=== PATIENT | female | born 2000 | race Caucasian/White ===

== ENCOUNTER 2023-10-04 15:30 | Outpatient (CLI) | payer OTHER, SELFPAY ==
[2023-10-04 18:53] LABS: Hematocrit 45.5 % (37.0-47.0); Hemoglobin 15.2 g/dL (12.0-15.0); Mean Corpuscular HGB Conc 33.4 g/dl (32-36); Mean Corpuscular Hemoglobin 31.2 pg (26-34); Mean Corpuscular Volume 93.4 fl (80-100); Mean Platelet Volume 10.5 fl (7.4-10.4); Platelet Count Result 365 k/mm3 (150-375); Red Blood Count 4.87 M/mm3 (4.2-5.4); Red Cell Distribution Width 12.6 % (11.5-14.5); White Blood Count 10.3 K/mm3 (4.5-10.0)
[2023-10-04 19:38] LABS: Alanine Aminotransferase 15 U/L (6-35); Albumin Level 4.9 g/dL (3.5-5.1); Alkaline Phosphatase 67 U/L (38-126); Anion Gap 12 mmol/L (4-12); Aspartate Amino Transferase 58 U/L (14-36); Bilirubin,Total 0.6 mg/dL (0.2-1.3); Blood Urea Nitrogen 13 mg/dL (7-17); Calcium 9.6 mg/dL (8.4-10.2); Carbon Dioxide 28 mmol/L (22-30); Chloride 99 mmol/L (98-107); Estimated Glomerular Filt Rate > 60; Glucose 89 mg/dL (65-110); Magnesium 2.3 mg/dL (1.6-2.3); Potassium 4.5 mmol/L (3.4-5.0); Sodium 139 mmol/L (137-145)
[2023-10-04 19:41] LABS: Iron 163 ug/dL (37-170)
[2023-10-04 19:58] LABS: Percent Iron Saturation 49 % (20-50)
[2023-10-04 20:06] LABS: Thyroid Stimulating Hormone 0.369 uIU/mL (0.465-4.680)
[2023-10-04 20:18] LABS: Free T4 Free Thyroxine 0.88 ng/mL (0.78-2.19)
[2023-10-04 20:41] LABS: Folic Acid 12.1 ng/mL (2.76->20)
[2023-10-04 21:07] LABS: Vitamin D 25 Hydroxy 52.9 ng/mL
[2023-10-06 13:53] LABS: Zinc 64 mcg/dL (60-130)
[2023-10-07 07:44] LABS: Thyroid Peroxidase Antibodies 1 IU/mL (<9)
== END 2023-10-04 15:31 | disposition home or self-care (01) ==
LOC: ANHBWCLAB 15:36
PROVIDERS: PCP Nurse Practitioner Adult Health; Visit Provider Nurse Practitioner Adult Health
DX: Z13.9 Encounter for screening, unspecified (principal); R53.83 Other fatigue; F50.9 Eating disorder, unspecified
CPT/HCPCS: 36415; 80053; 82306; 82607; 82728; 82746; 83540; 83550; 83735; 84439; 84443; 84630; 85027; 86376

== ENCOUNTER 2023-10-12 13:12 | Outpatient (CLI) | payer OTHER, SELFPAY ==
--- NOTE | ~2023-10-12 | US_ITS ---
EXAMINATION: US thyroid DATE: 10/12/2023 13:31 INDICATION: Other specified abnormal findings of blood chemistry. TECHNIQUE: Multiple ultrasound images of the thyroid were obtained. COMPARISON: None. FINDINGS: The right thyroid lobe measures 4.4 x 1.4 x 1.8 cm. The left thyroid lobe measures 4.0 x 0.9 x 1.2 c m. There is normal echotexture and echogenicity throughout the thyroid gland. No discrete nodules id entified. Normal vascular flow is present. IMPRESSION: 1. Normal thyroid. Reviewed, dictated and finalized at location A. IMPRESSION: 1. Normal thyroid.
== END 2023-10-12 13:13 | disposition home or self-care (01) ==
LOC: MICIMG 13:13
PROVIDERS: PCP Nurse Practitioner Adult Health; Visit Provider Nurse Practitioner Adult Health
DX: R79.89 Other specified abnormal findings of blood chemistry (principal)
CPT/HCPCS: 76536

== ENCOUNTER 2023-11-08 14:04 | Emergency (ER) | payer OTHER, SELFPAY ==
--- NOTE | ~2023-11-08 | CT_ITS ---
EXAMINATION: CT abdomen pelvis w con DATE: 11/08/2023 21:38 INDICATION: abdominal pain, vomiting TECHNIQUE: Computed tomography (CT) of the abdomen and pelvis was performed with 100 mL Omnipaque-350 intravenous contrast. Automated exposure control and iterative reconstruction technique were employe d. The dose-length product was 221.66 mGy-cm. COMPARISON: None. FINDINGS: Lower thorax: Motion artifact in the lower lungs Liver: Normal. Biliary/Gallbladder: Gallbladder is normal. No bile duct dilation. Pancreas: No mass or duct dilation. Spleen: Normal. Adrenals:No mass. Kidneys: No suspicious mass, obstructing stone, or hydronephrosis. GI tract: Mild distal esophageal and gastric wall edema. No small or large bowel dilation. Normal chidi endix. Mesentery/Peritoneum: No ascites, mass, or free air. Retroperitoneum: No mass. Pelvis: Nearly empty urinary bladder. Normal uterus and ovaries. Soft Tissues: Soft tissues and body wall unremarkable. Bones: No acute osseous finding. IMPRESSION: Mild esophagitis/gastritis. Otherwise, no acute abdominopelvic process detected. Reviewed, dictated and finalized at location K. IMPRESSION: Mild esophagitis/gastritis. Otherwise, no acute abdominopelvic process detected .
--- NOTE | ~2023-11-08 | XR_ITS ---
EXAMINATION: XR chest 2V Exam Date/Time: 11/08/2023 21:35 CDT HISTORY: chest pain Comparison: CT abdomen pelvis, same date. RESULT: Lines, tubes, and devices: None. Lungs and pleura: Clear. Cardiomediastinal silhouette: Normal. Other: No acute osseous or upper abdominal finding. IMPRESSION: No acute cardiopulmonary process. Reviewed, dictated and finalized at location K.
[2023-11-08 14:20] VITALS: BP 142/76; PULSE 78; RESP 16; TEMP 36.7; O2SAT 100
--- NOTE | 2023-11-08 16:48 | ED.NAVMDI ---
HPI - Nausea/Vomiting/Diarrhea General Chief complaint: Nausea/Vomiting/Diarrhea <Radha Portillo PA-C - Last Filed: 11/09/23 09:52> Stated complaint: nauseous <Radha Portillo PA-C - Last Filed: 11/09/23 09:52> Time Seen by Provider: 11/08/23 16:48 <Radha Portillo PA-C - Last Filed: 11/09/23 09:52> Focused HPI: This is a 23 year old female that presents to the ER for nausea. Reports this is fairly persistent for her. Reports history of anxiety and she does smoke. Reports history of eating disorders. Reports vomiting and diarrhea. Reports she has always been told that her nausea is due to her anxiety. Her boss told her to get a work note as she wanted to leave work because of her nausea. She has not seen a GI doctor yet for this. Denies fevers, dysuria or hematuria. GENERAL: Well-appearing, well-nourished, tearful HEAD: Normocephalic, atraumatic. CHEST: Clear to auscultation. ?No respiratory distress. HEART: Regular rate and rhythm.? NEURO: ?Alert and oriented x3. Patient screened in triage and initial orders placed.? ?Additional care and disposition to be based upon?diagnostic testing and treatment. <Radha Portillo PA-C - Last Filed: 11/09/23 09:52> History of Present Illness HPI Narrative: Patient is a 23-year-old female who presents emergency department with chief complaint of nausea vomiting. Patient reports that she has been having chronic nausea for an extended period of time she does report that she has anxiety and also has used marijuana. The patient states that she does not believe this is cannabis induced hyperemesis reports that she may have cyclic vomiting but has not seen GI. The patient states that she has a aching feeling in her abdomen and feels nauseated reports she has vomited up undigested food. Patient also reports he is getting some discomfort in her chest now as she has been waiting in the ER. Patient does report that she has been started on a new antidepressant about a month ago <Saurav Woods MD - Last Filed: 11/08/23 22:40> Related Data Home medications: Home Medications Medication Instructions Recorded Confirmed albuterol sulfate 90 mcg/actuation 1 puff inhalation Q4H PRN 03/03/23 11/07/23 aerosol inhaler Nsaids BYMOUTH 10/03/23 11/07/23 multivitamin (Daily Multi-Vitamin 1 tablet PO DAILY 10/03/23 11/07/23 tablet) Doxycycline BYMOUTH 11/07/23 11/07/23 adapalene 0.1 %-benzoyl peroxide ea topical 11/07/23 11/07/23 2.5 %-clindamycin 1 % topical gel dapsone 7.5 % topical gel with pump 1 applic topical DAILY 11/07/23 11/07/23 spironolactone 100 mg tablet 100 mg PO DAILY 11/07/23 11/07/23 triamcinolone acetonide 0.1 % 1 applic topical DAILY 11/07/23 11/07/23 topical ointment <Radha Portillo PA-C - Last Filed: 11/09/23 09:52> Allergies/Adverse reactions: Allergies Allergy/AdvReac Type Severity Reaction Status Date / Time Penicillins Allergy Severe hives Verified 11/07/23 14:47 lamotrigine [From Lamictal] Allergy Unknown Unknown Verified 11/07/23 14:47 <Radha Portillo PA-C - Last Filed: 11/09/23 09:52> Review of Systems Review of Systems: A 10 system review of systems was completed on the patient and is negative except for what is stated in the HPI. Nursing and ancillary documentation was reviewed. <Saurav Woods MD - Last Filed: 11/08/23 22:40> [facility] Past Medical History Medical History: Medical History Anxiety Asthma Chronic pain Depression Eating disorder Migraine Personality disorder Seasonal allergies <Radha Portillo PA-C - Last Filed: 11/09/23 09:52> Family History Family History: Family History Father Hypertension Mother Diabetes mellitus Depression Asthma Grandparent Diabetes mellitus Hypertension Heart problem Sibling Depression Sibling
[2023-11-08 18:22] LABS: Basophils Percent Auto 0.1 % (0.2-1.2); Hematocrit 42.8 % (37.0-47.0); Hemoglobin 15.5 g/dL (12.0-15.0); Immature Granulocyte Absolute 0.04 K/mm3 (0.00-0.031); Immature Granulocyte Percent A 0.3 % (0-0.5); Lymphocytes Absolute Auto 1.25 K/mm3 (0.9-3.2); Lymphocytes Percent Auto 8.4 % (18.3-44.2); Mean Corpuscular HGB Conc 36.2 g/dl (32-36); Mean Corpuscular Hemoglobin 32.3 pg (26-34); Mean Corpuscular Volume 89.2 fl (80-100); Monocytes Absolute Auto 0.6 K/mm3 (0.1-0.6); Monocytes Percent Auto 3.8 % (2.6-8.5); Neutrophils Absolute Auto 13.1 K/mm3 (1.3-6.7); Neutrophils Percent Auto 87.4 % (45.5-73.1); Platelet Count Result 346 k/mm3 (150-375); Red Cell Distribution Width 12.4 % (11.5-14.5); White Blood Count 14.9 K/mm3 (4.5-10.0)
[2023-11-08 18:34] LABS: Alanine Aminotransferase 29 U/L (6-35); Albumin Level 5.1 g/dL (3.5-5.1); Alkaline Phosphatase 70 U/L (38-126); Anion Gap 13 mmol/L (4-12); Aspartate Amino Transferase 36 U/L (14-36); Bilirubin,Total 0.8 mg/dL (0.2-1.3); Blood Urea Nitrogen 14 mg/dL (7-17); Calcium 9.6 mg/dL (8.4-10.2); Carbon Dioxide 19 mmol/L (22-30); Chloride 104 mmol/L (98-107); Estimated CRCL calculation 155 ml/min; Estimated Glomerular Filt Rate > 60; Glucose 108 mg/dL (65-110); Lipase 112 U/L (23-300); Potassium 4.1 mmol/L (3.4-5.0); Sodium 136 mmol/L (137-145)
[2023-11-08 19:48] VITALS: BP 125/90; PULSE 108; RESP 16; TEMP 36.9; O2SAT 100
--- NOTE | 2023-11-08 20:27 | ECG_ITS ---
Test Date: 2023-11-08 21:04:25 Measurements Intervals [place] Rate: 105 P: 134 HI: 139 QRS: 130 QRSD: 87 T: 50 QT: 350 QTc: 464 Interpretive Statements SINUS TACHYCARDIA ARM LEADS REVERSED [INVERTED P AND QRS IN I] NONSPECIFIC T-WAVE ABNORMALITY ABNORMAL ECG No previous ECG available for comparison Electronically Signed On 11-09-2023 13:50:05 CDT by Wily Murphy M.D.
[2023-11-08] MEDS: SODIUM CHLORIDE 0.9% IV 1,000 ML 999 ML IV CONT ×2 (20:45→20:53)
[2023-11-08] MEDS: diphenhydrAMINE HCl INJ 50 MG/ML VIAL IV PUSH (20:58)
[2023-11-08] MEDS: PROCHLORPERAZINE EDISYLATE 10 MG/2 ML VIAL IV PUSH (20:59)
[2023-11-08 21:04] LABS: Magnesium 1.9 mg/dL (1.6-2.3)
[2023-11-08 21:18] LABS: Troponin I < 0.012 ng/mL (0.000-0.034)
[2023-11-08 21:24] VITALS: BP 108/69; PULSE 89; RESP 18; O2SAT 100
[2023-11-08 21:24] LABS: BEDSIDEPREGUCG Negative (Negative)
[2023-11-08 21:26] LABS: Add Urine Microscopic? YES; Appearance Urine Clear (Clear); Bacteria Urine None Seen /hpf; Bilirubin Urine Negative (Negative); Blood Urine 3+ (Negative); Color Urine Yellow (Yellow); Glucose Urine UA Negative (Negative); Ketones Urine 2+ mg/dL (Negative); Leukocyte Esterase Ur Negative LEU/UL (Negative); Nitrate Urine Negative (Negative); Non Pathogenic Casts 0-2; Protein Urine 2+ mg/dL (Negative); Squamous Epithelial Cell Urine None Seen /hpf (Few); Urobilinogen Urine 0.2 mg/dL (<2.0); WBC Urine 0-5 /hpf (0-3); pH Urine 6.5 (5.0-9.0)
== END 2023-11-08 23:03 | disposition home or self-care (01) ==
PROVIDERS: Physician Assistant; Emergency Provider Emergency Medicine; PCP Nurse Practitioner Adult Health
DX: R11.2 Nausea with vomiting, unspecified (principal); K29.70 Gastritis, unspecified, without bleeding; F41.9 Anxiety disorder, unspecified; F32.A Depression, unspecified; J45.909 Unspecified asthma, uncomplicated; Z79.51 Long term (current) use of inhaled steroids; F12.90 Cannabis use, unspecified, uncomplicated
CPT/HCPCS: 36415; 71046; 74177; 80053; 81001; 81025; 83690; 83735; 84484; 85025; 93005; 96361; 96374; 96375; 99284; J0780; J1200; J7030; Q9967

== ENCOUNTER 2024-01-03 16:04 | Outpatient (CLI) | payer OTHER, SELFPAY ==
[2024-01-03 11:48] LABS: CRP < 0.5 mg/dL (<1.0)
[2024-01-03 11:54] LABS: Erythrocyte Sedimentation Rate 13 mm/hr (0-20)
[2024-01-06 14:27] LABS: H pylori Ag Stool RESULT: Not Detected
[2024-01-07 04:13] LABS: Immunoglobulin A 375 mg/dL (47-310); TTG IGA AB <1.0 U/mL
== END 2024-01-03 16:05 | disposition home or self-care (01) ==
PROVIDERS: PCP Nurse Practitioner Adult Health; Visit Provider Nurse Practitioner Family
DX: H90.3 Sensorineural hearing loss, bilateral (principal); R11.0 Nausea; R19.7 Diarrhea, unspecified; R63.0 Anorexia; R63.4 Abnormal weight loss; R68.81 Early satiety; H69.90 Unspecified Eustachian tube disorder, unspecified ear; J30.2 Other seasonal allergic rhinitis; J32.0 Chronic maxillary sinusitis; J34.89 Other specified disorders of nose and nasal sinuses
CPT/HCPCS: 36415; 82784; 83993; 85652; 86140; 86364; 87338

== ENCOUNTER 2024-01-11 01:33 | Day surgery (SDC) | payer OTHER, SELFPAY ==
[2024-01-02 09:00] VITALS: BMI 20.7
[2024-01-11 06:24] VITALS: BP 114/70; PULSE 102; RESP 16; TEMP 36.2; O2SAT 100
[2024-01-11 06:27] VITALS: BMI 21.4
[2024-01-11] MEDS: LACTATED RINGERS 1,000 ML 150 ML IV CONT (06:40)
[2024-01-11 07:21] LABS: Beta HCG Quantitative < 2.39 mIU/ML
--- NOTE | 2024-01-11 07:30 | WPDANESEPPF ---
Anes - Initial Pre Proc Eval Procedure: Operation Date: 01/11/24 07:30 Proposed Procedures p Esophagogastroduodenoscopy & Colonoscopy - Bernard Miller MD Date/Time: 01/11/24 07:30 Surgeon: Bernard Miller MD Pre Op Diagnosis: anorexia/ diarrhea Patient Data Age: 23 Gender: F Height: 1.68 m Weight: 60.3 kg Last Vital Signs Temp 36.2 C L 01/11/24 06:24 Pulse 102 H 01/11/24 06:24 Resp 16 01/11/24 06:24 BP 114/70 01/11/24 06:24 Pulse Ox 100 01/11/24 06:24 Allergies Allergy/AdvReac Type Severity Reaction Status Date / Time lamotrigine [From Lamictal] Allergy Unknown Rash Verified 01/11/24 06:22 Home Medications Medication Instructions Recorded Confirmed Type albuterol sulfate 90 mcg/actuation 1 puff inhalation Q4H PRN 03/03/23 01/11/24 History aerosol inhaler Shortness Of Breath diazepam 2 mg tablet 2 mg PO BID PRN anxiety #20 tabs 10/04/23 01/11/24 Rx adapalene 0.1 %-benzoyl peroxide 1 ea topical EVERY OTHER DAY 11/07/23 01/11/24 History 2.5 %-clindamycin 1 % topical gel dapsone 7.5 % topical gel with pump 1 applic topical DAILY 11/07/23 01/11/24 History fluvoxamine 50 mg tablet 50 mg PO DAILY #90 tabs 11/07/23 01/11/24 Rx spironolactone 100 mg tablet 100 mg PO DAILY 11/07/23 01/11/24 History ondansetron 4 mg disintegrating 4 mg PO Q8H PRN nausea and 11/08/23 01/11/24 Rx tablet vomiting #10 tabs norgestimate 0.25 mg-ethinyl 1 tablet PO .COMPLEX #112 tabs 11/16/23 01/11/24 Rx estradiol 35 mcg tablet (Sprintec (28)) tacrolimus 0.1 % topical ointment 1 ea topical PRN PRN rash 11/16/23 01/11/24 History pantoprazole 40 mg tablet,delayed 40 mg PO DAILY #30 tabs 11/22/23 01/11/24 Rx release (Protonix) Laboratory Tests 01/11/24 06:44 Beta HCG, Quant < 2.39 mIU/ML Patient hx anesthesia problems: none Family hx anesthesia problems: none Results Review: All pre-operative results and documents have been reviewed as part of the pre-operative evaluation. [facility] Past Medical History Medical History Anxiety Asthma Chronic pain Depression Eating disorder Migraine Personality disorder Seasonal allergies Family History Family History Father Hypertension Mother Diabetes mellitus Depression Asthma Grandparent Diabetes mellitus Hypertension Heart problem Sibling Depression Sibling Depression Grandparent Heart disease Hypertension Grandparent Heart problem Hypertension Grandparent Hypertension Cancer Social History Social History Smoking status: Current every day smoker Tobacco type: e-cigarettes/vaping Second hand tobacco smoke exposure: No Alcohol intake: current Alcohol use details: Rarely Substance use: current Substance use type: marijuana Other substance usage details: vapes, edibles from dispensary only Last use: 01/02/24 Do You Feel Safe in your Home?: Yes Lack of Transportation: No Lack of Food: Never True Current Housing: I Have Housing Concerned About Future Housing: No Difficulty Paying Gas/Electric Bills: No Difficulty Paying for Meds: No Currently Unemployed: YES Education: High School Diploma/GED Difficulty w/ Childcare or Family Care: No Living arrangements: with family Occupation/Education: occupation 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 Gender identity (if verbalized by the patient): Female Sexual Orientation (if Verbalized by the Patient): Straight or Heterosexual Agree to blood products: Yes Anes - Eval Final PreProcedure Day of Procedure 01/11/24 07:30 Patient weight: normal Heart: regular rate and rhythm Lungs: clear to auscultation Airway: Mallampati scale class II Neurological: alert and oriented Last oral intake: >/= 8 hours ASA classification: III Emergent: no Anesthetic plan: proceed Anesthesia type and monitoring: general GIVS and standard monitoring Results Review: All pre-operative results and documents have been reviewed as part of the pre-operative evaluation. Informed Consent: The patient's anesthetic plan and its attendant risks and benefits were discussed with the patient/family/POA. Questions were solicited and answers provided to the satisfaction of the patient/family/POA.
--- NOTE | 2024-01-11 07:33 | PM.IMHP ---
H&P: HPI History of Present Illness Date/Time: 01/11/24 07:33 Chief Complaint: Nausea and intermittent diarrhea. Narrative: this patient has been complaining of early satiety and nausea for several months, in addition to occasional diarrhea episodes with urgency. There is no rectal bleeding, severe abdominal pain but there is change in bowel habits which is relatively recent. She is here for evaluation including EGD and colonoscopy. Review of Systems Review of Systems: All systems reviewed & are unremarkable except as noted in HPI and below PMFSH Past Medical History Medical History Anxiety Asthma Chronic pain Depression Eating disorder Migraine Personality disorder Seasonal allergies Family History Family History Father Hypertension Mother Diabetes mellitus Depression Asthma Grandparent Diabetes mellitus Hypertension Heart problem Sibling Depression Sibling Depression Grandparent Heart disease Hypertension Grandparent Heart problem Hypertension Grandparent Hypertension Cancer Social History Social History Smoking status: Current every day smoker Tobacco type: e-cigarettes/vaping Second hand tobacco smoke exposure: No Alcohol intake: current Alcohol use details: Rarely Substance use: current Substance use type: marijuana Other substance usage details: vapes, edibles from dispensary only Last use: 01/02/24 Do You Feel Safe in your Home?: Yes Lack of Transportation: No Lack of Food: Never True Current Housing: I Have Housing Concerned About Future Housing: No Difficulty Paying Gas/Electric Bills: No Difficulty Paying for Meds: No Currently Unemployed: YES Education: High School Diploma/GED Difficulty w/ Childcare or Family Care: No Living arrangements: with family Occupation/Education: occupation 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 Gender identity (if verbalized by the patient): Female Sexual Orientation (if Verbalized by the Patient): Straight or Heterosexual Agree to blood products: Yes Meds Home Medications and Allergies Home Medications Medication Instructions Recorded Confirmed Type albuterol sulfate 90 mcg/actuation 1 puff inhalation Q4H PRN 03/03/23 01/11/24 History aerosol inhaler Shortness Of Breath diazepam 2 mg tablet 2 mg PO BID PRN anxiety #20 tabs 10/04/23 01/11/24 Rx adapalene 0.1 %-benzoyl peroxide 1 ea topical EVERY OTHER DAY 11/07/23 01/11/24 History 2.5 %-clindamycin 1 % topical gel dapsone 7.5 % topical gel with pump 1 applic topical DAILY 11/07/23 01/11/24 History fluvoxamine 50 mg tablet 50 mg PO DAILY #90 tabs 11/07/23 01/11/24 Rx spironolactone 100 mg tablet 100 mg PO DAILY 11/07/23 01/11/24 History ondansetron 4 mg disintegrating 4 mg PO Q8H PRN nausea and 11/08/23 01/11/24 Rx tablet vomiting #10 tabs norgestimate 0.25 mg-ethinyl 1 tablet PO .COMPLEX #112 tabs 11/16/23 01/11/24 Rx estradiol 35 mcg tablet (Sprintec (28)) tacrolimus 0.1 % topical ointment 1 ea topical PRN PRN rash 11/16/23 01/11/24 History pantoprazole 40 mg tablet,delayed 40 mg PO DAILY #30 tabs 11/22/23 01/11/24 Rx release (Protonix) Allergies Allergy/AdvReac Type Severity Reaction Status Date / Time lamotrigine [From Lamictal] Allergy Unknown Rash Verified 01/11/24 06:22 Vital Signs Vital Signs - 24 hr 01/11/24 06:24 Temperature 97.2 F L Pulse Rate 102 H Respiratory Rate 16 Blood Pressure 114/70 Pulse Oximetry 100 Exam Const: General: cooperative and healthy appearing Resp: Effort & Inspection: normal respiratory effort and able to speak in complete sentences Auscultation: clear to auscultation bilaterally Cardio: Rate: regular rate Rhythm: regular rhythm GI: Inspection: normal to inspection GI Palp: No No hepatosplenomegaly present Auscultation: normal bowel sounds Rectal Exam: deferred Skin: General skin exam: normal color Psych: Appearance: grossly normal Mental Status: mental status grossly normal Assessment and Plan Assessment and plan (1) Nausea: Code(s): R11.0 - Nausea Status: Acute Assessment and Plan: The patient is deemed a good candidate for the procedure. Consent signed. Will proceed. (2) Diarrhea: Qualifiers: Diarrhea type: functional diarrhea Qualified Code(s): K59.1 - Functional diarrhea Code(s): R19.7 - Diarrhea, unspecified Status: Acute
--- NOTE | 2024-01-11 07:39 | SUR.OPER ---
EGD: [id number] COLON: [id number]-
[2024-01-11 08:05] VITALS: BP 99/66; PULSE 75; RESP 18; O2SAT 100
[2024-01-11 08:15] VITALS: BP 102/65; PULSE 72; RESP 18; O2SAT 100
[2024-01-11 08:25] VITALS: BP 102/69; PULSE 71; RESP 15; O2SAT 100
== END 2024-01-11 08:37 | disposition home or self-care (01) ==
PROVIDERS: Anesthesiology; PCP Nurse Practitioner Adult Health; Referring Provider Nurse Practitioner Family; Visit Provider Internal Medicine Gastroenterology
PROC: 0DJ08ZZ Inspection of Upper Intestinal Tract, Via Natural or Artificial Opening Endoscopic (ICD-10-PCS; CPT 43235; principal; 2024-01-11 07:30)
DX: K59.1 Functional diarrhea (principal); F41.9 Anxiety disorder, unspecified; J45.909 Unspecified asthma, uncomplicated; G89.29 Other chronic pain; F32.A Depression, unspecified; Z68.21 Body mass index [BMI] 21.0-21.9, adult; F50.9 Eating disorder, unspecified; F60.9 Personality disorder, unspecified; F12.90 Cannabis use, unspecified, uncomplicated; F17.290 Nicotine dependence, other tobacco product, uncomplicated; Z79.51 Long term (current) use of inhaled steroids; Z80.9 Family history of malignant neoplasm, unspecified; Z82.49 Family history of ischemic heart disease and other diseases of the circulatory system
CPT/HCPCS: 43239; 45380; 36415; 84702; 88305; J2003; J2371; J2704; J7120

== ENCOUNTER 2024-03-13 07:47 | Outpatient (CLI) | payer OTHER, SELFPAY ==
--- NOTE | ~2024-03-13 | NM_ITS ---
EXAM: NM gastric emptying study DATE: 03/13/2024 12:33 INDICATION: Nausea. Early satiety. TECHNIQUE: A gastric emptying study was performed using the methodology of Elza PENA, et al. J Nucl Med 2007; 48:568-572. The patient was given a meal consisting of 2 scrambled eggs labeled with 0.972 mCi Tc-99m sulfur colloid, 2 slices of toast, two packages of jam, and approximately 120 mL of water . Simultaneous anterior and posterior 1-min images of the abdomen were obtained with the patient supi ne at multiple time points over a total period of 4 hours. The geometric mean of anterior and posteri or views was determined, and the percentage retention was calculated for each time point. COMPARISON: CT abdomen and pelvis 11/08/2023 FINDINGS: Gastric retention of the radiotracer-labeled meal was 58%, 32%, and 14% at the 1-hour, 2-h our, and 4-hour time points, respectively. With this technique, apparent rapid gastric emptying is rose ggested by <30% gastric retention at 1 hour. Delayed gastric emptying is defined by gastric retention of >90% at 1 hour, >60% retention at 2 hours, or >10% retention at 4 hours. IMPRESSION: 1. Delayed gastric emptying. Reviewed, dictated and finalized at location A. [employer]G FOREMAN
--- OUTSIDE RECORDS SUMMARY | 2024-03-13 07:50 | XMS_ITS | Data Portability ---
Author Organization [facility] [place] Address [address] [place] [address] Care Team Providers Care Leisure Travel Agent Name Role Phone BRITNEY BERRIOS Psychiatrist MATTHIEU GARBER Primary Care Provider [phone] Assessment Encounter Date Assessment Date Assessment LastModified by Organization Details LastModified Time 10/15/2022 10/15/2022 Telehealth communication performed with patient. Service was provided using telemedicine. Patient verbally consents to this services (virtual check-in). Names and roles of all persons participating in telemedicine services include: Patient is located at home and is an established patient. A total of _15-20__ minutes were spent in consultation via [employer] Telehealth video and audio to assess and treat the following: Not available 10/15/2022 16:28:59 Plan of Treatment Reminders Order Date Submit Date Provider Last Modified By Organization Details Last Modified Time Details Appointments None recorded. Lab magnesium, serum or plasma 2021 022 [facility], [address] [place], [address], 3 08:44:46 vitamin B12 + folate, serum or blood 2021 022 [facility], [address] [place], [address], 3 08:44:47 TSH, serum or plasma 2021 022 [facility], [address] [place], [address], 3 08:44:47 T4, free, serum 2021 022 [place] [address] [facility], [address] [place], [address], 3 08:44:47 CBC w/ auto diff 2021 022 [place] [address] [facility], [address] [place], [address], 3 08:44:47 CMP, serum or plasma 2021 022 [place] [address] [facility], [address] [place], [address], 3 08:44:47 CT + NG RNA, PCR, unspecified specimen 2021 022 [place] [address] [facility], [address] [place], [address], 3 08:44:45 trichomonas vaginalis RNA 2021 022 [place] [address] [facility], [address] [place], [address], 3 08:44:45 HIV 1+2 Ab + HIV1 p24 Ag, quantitativ e immunoassay , serum 2021 022 [place] [address] [facility], [address] [place], [address], 3 08:44:46 RPR (rapid plasma reagin), serum 2021 [place] [address] [facility], [address] [place], [address], 3 08:44:46 hsv (1+2) igg, serum 2021 022 [email or web address], [address] [place], [address], 3 08:44:46 hepatitis panel (A+B+C), acute, serum 2021 022 [email or web address] [facility], [address] [place], [address], 3 08:44:46 TSH, serum or plasma 2022 023 [email or web address], [address] [place], [address], 4 12:10:42 erythrocyte sedimentati on rate by westergren method 2022 023 [email or web address], [address] [place], [address], 4 12:10:41 CMP, serum or plasma 2022 023 [email or web address], [address] [place], [address], 4 12:10:42 magnesium, serum or plasma 2022 023 [email or web address], [address] [place], [address], 4 12:10:42 MARY (antinuclea r antibodies) screen, serum 2022 023 [email or web address], [address] [place], [address], 4 12:10:42 Referral gynecologis t referral 2021 022 [email or web address] Aline Beltran MD, [address] , [facility], [place], [address], 3 08:54:54 Procedures None recorded. Surgeries None recorded. Imaging None recorded. Medication Orders Vraylar 1.5 mg capsule 2021 022 [email or web address] Not available 3 15:34:09 Vraylar 3 mg capsule 2021 022 [email or web address] Not available 3 15:34:19 nystatin 100,000 unit/gram topical powder 2022 023 [facility] [address] [place], [address], 3 11:29:22 triamcinolo ne acetonide 0.1 % topical cream 2022 023 [facility], [address] [place], [address], 3 11:29:22 Ubrelvy 100 mg tablet [address]/[facility]armacy [facility], [address] [place], [address], 3 16:02:26 Nurtec ODT 75 mg disintegrat ing tablet [address]/Pharmacy #3206, [address] [place], [address], 3 16:27:54 propranolol 10 mg tablet 2022 023 [facility]3206, [address] [place], [address], 3 15:54:04 propranolol 10 mg tablet 2022 023 [email or web address] [address] [facility]/Pharmacy #3206, [address] [place], [address], 3 12:35:26 Patient TargetsNo targets recorded. Patient Instructions Encounter Date Encounter Id Patient Instructions Last Modified By Organization Details Last Modified Time 09/30/2021 [id number] post-traumatic stress disorder (PTSD): care instructions Not available 10/01/2021 08:24:21 controlling your asthma: care instructions Not available 10/01/2021 08:24:20 learning about asthma Not available 10/01/2021 08:24:21 learning about high blood sugar Not available 10/01/2021 08:24:20 headache: care instructions Not available 10/01/2021 08:24:21 anxiety disorder : care instructions Not available 10/01/2021 08:24:20 learning about mood disorders Not available 10/01/2021 08:24:21 01/11/2022 [id number] controlling your asthma: care instructions Not available 01/11/2022 17:27:27 learning about asthma Not available 01/11/2022 17:27:26 learning about high blood sugar Not available 01/11/2022 17:27:27 headache: care instructions Not available 01/11/2022 17:27:25 bulimia: care instructions Not available 01/11/2022 17:27:26 anxiety disorder : care instructions Not available 01/11/2022 17:27:27 learning about mood disorders Not available 01/11/2022 17:27:27 03/10/2022 [id number] headache: care instructions Not available 03/10/2022 11:29:19 controlling your asthma: care instructions Not available 03/10/2022 11:29:19 learning about asthma Not available 03/10/2022 11:29:19 learning about high blood sugar Not available 03/10/2022 11:29:19 anxiety disorder : care instructions Not available 03/10/2022 11:29:19 Eczema: Care Instructions Not available 03/10/2022 11:29:19 learning about mood disorders Not available 03/10/2022 11:29:19 09/13/2022 [id number] headache: care instructions Not available 09/13/2022 15:53:57 controlling your asthma: care instructions Not available 09/13/2022 15:53:57 learning about asthma Not available 09/13/2022 15:53:57 anxiety disorder : care instructions Not available 09/13/2022 15:53:57 learning about mood disorders Not available 09/13/2022 15:53:57 10/15/2022 [id number] controlling your asthma: care instructions Not available 10/15/2022 16:29:40 learning about asthma Not available 10/15/2022 16:29:40 headache: care instructions Not available 10/15/2022 16:29:40 anxiety disorder : care instructions Not available 10/15/2022 16:29:40 learning about mood disorders Not available 10/15/2022 16:29:40 Reason for Referral [employer] Referral for Co ntraception care management Referring Physician: Erma Wharton, Family Medicine, Encounter Date: 01/11/2022 Problems Name Problem SNOMED Code Status Onset Date Resolution Date Notes Provider Name and Address Organization Details Recorded Time Asthma 623495558 Active 2021 Not Available [facility] 3 22:21:40 Anxiety 78527680 Active 2021 Not Available [facility] 3 22:21:41 Depressive disorder 78527658 Active 2021 Not Available [facility] 3 22:21:41 Attention deficit hyperactiv ity disorder 319679089 Active 2021 Not Available [facility] 3 22:21:41 Bipolar disorder 41941560 Active 2021 Not Available [facility] 3 22:21:40 Posttrauma tic stress disorder 24155643 Active 2021 Not Available [facility] 3 22:21:41 Headache 66042670 Active 2021 Not Available [facility] 3 22:21:41 Vitamin D deficiency 18005071 Active 2021 Not Available [facility] 3 22:21:41 Hyperglyce alice 39394557 Active 2021 Not Available [facility] 3 22:21:41 Generalize d anxiety disorder 86496079 Active 2021 Not Available [facility] 3 22:21:41 Severe major depression without psychotic features 52698378 Active 2021 Not Available [facility] 3 22:21:41 Borderline personalit y disorder 32428074 Active 2021 Not Available [facility] 3 22:21:40 Sleep terror disorder 88976682 Active 2021 Not Available [facility] 3 22:21:41 Fatigue 32382794 Active 2021 Not Available [facility] 3 22:21:41 Sleep disorder 47056596 Active 2021 Not Available [facility] 3 22:21:41 Nausea 439247215 Active 2021 Not Available [facility] 3 22:21:41 Mood disorder 60637051 Active 2021 Not Available [facility] 3 22:21:41 New daily persistent headache 7922055006944 05 Active 2022 [facility] [address] [place], [address] , [facility] 3 16:20:43 Migraine 12318941 Active 2022 [facility] [address] [place], [address] , [facility] 3 16:20:43 Notes:Some problems listed i n Document: #[id number] could not be added to this patient's chart. Please review this document and add these problems to the patient's chart manually as needed. Problem Notes None recorded. Procedures Surgical History Date Name Laterality Status Provider Name and Address Organization Details Recorded Time 10/16/19 Telehealth Communication completed Sylvia Paniagua CMA [facility] 10/15/2022 15:56:26 Imaging Results None recorded. Procedure Notes None recorded. Medical Equipment None Reported. Allergies No known drug allergies Medications Name Sig Start Date Stop Date Status Note LastModified by Organization Details LastModified Time fc2 female condom misc 08/27 completed Not Available Not Available Not Available promethazin e-DM 6.25 mg-15 mg/5 mL oral syrup TAKE 5 ML BY MOUTH EVERY 4 TO 6 HOURS NEEDED 09/13 completed Not Available Not Available Not Available azithromyci n 250 mg tablet TAKE 2 TABLETS BY MOUTH TODAY, THEN TAKE 1 TABLET DAILY FOR 4 DAYS 07/29 completed Not Available Not Available Not Available triamcinolo ne acetonide 0.1 % topical cream APPLY THIN COAT TO AFFECTED AREA TWICE A DAY active Not Available Not Available No t Available alprazolam 0.5 mg tablet TAKE 1 TABLET BY MOUTH EVERY DAY NEEDED *MUST FOLLOW UP WITH PSYCH MD FOR REFILL 07/29 completed Not Available Not Available Not Available propranolol 10 mg tablet TAKE 2 TABLETS BY MOUTH 3 TIMES A DAY NEEDED 2022 active Not Available Not Available Not Avai lable alprazolam 0.25 mg tablet TAKE 1 TABLET BY MOUTH EVERY DAY NEEDED 07/29 completed Not Available Not Available Not Available trazodone 100 mg tablet TAKE 1 TABLET BY MOUTH EVERYDAY AT BEDTIME 07/29 completed Not Available Not Available Not Available propranolol ER 80 mg capsule,24 hr,extended release TAKE 1 CAPSULE BY MOUTH EVERY DAY IN THE MORNING 07/29 completed Not Available Not Available Not Available montelukast 10 mg tablet active Not Available Not Available Not Available mirtazapine 15 mg tablet TAKE 1 TABLET BY MOUTH EVERY DAY AT NIGHT 09/30 completed Not Available Not Available Not Available triamcinolo ne acetonide 0.1 % lotion active Not Available Not Available Not Available methylpredn isolone 4 mg tablets in a dose pack TAKE 6 TABLETS ON DAY 1 DIRECTED ON PACKAGE AND DECREASE BY 1 TAB EACH DAY FOR A TOTAL OF 6 DAYS 07/29 completed Not Available Not Available Not Available albuterol sulfate HFA 90 mcg/actuati on aerosol inhaler INHALE 2 PUFFS EVERY 4 HOURS BY INHALATIO N ROUTE NEEDED active Not Available Not Available No t Available norethindro ne (contracept micheal) 0.35 mg tablet 07/29 completed Not Available Not Available Not Available cefdinir 300 mg capsule TAKE 1 CAPSULE BY MOUTH EVERY 12 HOURS FOR 10 DAYS 09/13 completed Not Available Not Available Not Available prazosin 2 mg capsule TAKE 1 CAPSULE BY MOUTH EVERYDAY AT BEDTIME 09/30 completed Not Available Not Available Not Available amoxicillin 875 mg-potassiu m clavulanate 125 mg tablet TAKE ONE TABLET BY MOUTH EVERY 12 HOURS FOR 10 DAYS 01/11 completed Not Available Not Available Not Available escitalopra m 20 mg tablet TAKE 1.5 TABLETS EVERY DAY BY ORAL ROUTE IN THE MORNING. 07/29 completed Not Available Not Available Not Available duloxetine 20 mg capsule,del ayed release TAKE 1 CAPSULE IN THE MORNING 07/29 completed Not Available Not Available Not Available duloxetine 30 mg capsule,del ayed release TAKE 1 CAPSULE BY MOUTH EVERY DAY 09/13 completed Not Available Not Available Not Available [facility] 100,000 unit/gram topical powder APPLY TO AFFECTED AREA TWICE A DAY active Not Available Not Available No t Available Latuda 40 mg tablet TAKE 1 TABLET BY MOUTH EVERY DAY 09/13 completed Not Available Not Available Not Available Michaelle 30 mg tablet active Not Available Not Available Not Available clonidine HCl ER 0.1 mg tablet,exte nded release,12 hr TAKE 2 TABLET BY MOUTH TWICE A DAY FOR 90 DAYS 07/29 completed Not Available Not Available Not Available Latuda 20 mg tablet TAKE 1 TABLET BY MOUTH EVERY DAY AT DINNER FOR 30 DAYS 07/29 completed Not Available Not Available Not Available Vraylar 6 mg capsule TAKE 1 CAPSULE EVERY NIGHT AT BEDTIME 07/29 completed Not Available Not Available Not Available Vraylar 1.5 mg capsule Take 1 capsule every day by oral route. 09/13 completed Not Available Not Available Not Available Vraylar 3 mg capsule Take 1 capsule every day by oral route. 09/13 completed Not Available Not Available Not Available Simpesse 0.15 mg-30 mcg (84)/10 mcg(7) tablets,3 month dose pack active Not Available Not Available Not Available Ubrelvy 100 mg tablet Take 1 tablet every day by oral route as needed. 2022 active Not Available Not Available Not Avai labheber Cota ODT 75 mg disintegrat ing tablet Take 1 tablet every day by oral route as needed. 10/15 completed Not Available Not Available Not Available ID NOW COVID-19 Test Kit TEST DIRECTED TODAY 07/29 completed Not Available Not Available Not Available Vitals Date Recorded Body height Body mass index (BMI) Percentile per age and sex Body mass index (BMI) Body weight Body temperature Heart rate Respiratory rate Oxygen saturation Oxygen saturation in Arterial blood by Pulse oximetry Systolic blood pressure Diastolic blood pressure Provider Name and Address Organization Details Last Updated DateTime 2 170.18 cm 90 % 28 kg/m2 92052.0 3 g 98 [degF] 80 /min 16 /min 98 % 98 % 100 mm[Hg] 70 mm[Hg] MARIEL Stanton [facility] 2 08:09:52 Date Recorded Body height Body mass index (BMI) Percentile per age and sex Body weight Body temperature Heart rate Oxygen saturation Oxygen saturation in Arterial blood by Pulse oximetry Systolic blood pressure Diastolic blood pressure Provider Name and Address Organization Details Last Updated DateTime 2 170.18 cm 83 % 67165.3 3 g 97.8 [degF] 90 /min 99 % 99 % 116 mm[Hg] 62 mm[Hg] Rylee Butler [facility] 2 17:04:37 Date Recorded Body height Body mass index (BMI) Body mass index (BMI) Percentile per age and sex Body weight Body temperature Respiratory rate Pain severity - 0-10 verbal numeric rating [Score] - Reported Heart rate Oxygen saturation Oxygen saturation in Arterial blood by Pulse oximetry Systolic blood pressure Diastolic blood pressure Provider Name and Address Organization Details Last Updated DateTime 3 170.18 cm 24.3 kg/m2 74 % 60356.8 2 g 97.6 [degF] 16 /min 0 99 /min 98 % 98 % 110 mm[Hg] 68 mm[Hg] Ramona Meza [facility] 3 11:04:11 Date Recorded Body height Body mass index (BMI) Percentile per age and sex Body mass index (BMI) Body weight Respiratory rate Pain severity - 0-10 verbal numeric rating [Score] - Reported Oxygen saturation Oxygen saturation in Arterial blood by Pulse oximetry Heart rate Body temperature Systolic blood pressure Diastolic blood pressure Provider Name and Address Organization Details Last Updated DateTime 170.18 cm 53 % 22.1 kg/m2 13609.5 2 g 16 /min 4 98 % 98 % 97 /min 98.4 [degF] 110 mm[Hg] 70 mm[Hg] Sylvia Paniagua CMA [facility] 15:29:05 Date Recorded Body height Body mass index (BMI) Body mass index (BMI) Percentile per age and sex Body weight Provider Name and Address Organization Details Last Updated DateTime 10/15/2022 170.18 cm 21.1 kg/m2 42 % 05304.97 g Sylvia Paniagua CMA [facility] 10/15/2022 15:57:44 Social History Question Answer Notes LastModified by Organizat ion Details LastModified Time Tobacco Smoking Status Never Smoker Radha Bella [facility] 07/29/2021 10:52:56 Do You Have An Advance Directive? No Information not available 07/29/2021 Are You Blind Or Do You Have Difficulty Seeing? No Information not available 07/29/2021 Are You Deaf Or Do You Have Serious Difficulty Hearing? No Information not available 07/29/2021 What Type Of Diet Are You Following? REGULAR Information not available 07/29/2021 Do You Have A Medical Power Of Structural Architect? No Information not available 07/29/2021 What Was The Date Of Your Most Recent Tobacco Screening? 10/15/2022 Information not available 10/15/2022 Do You Or Have You Ever Used Any Other Forms Of Tobacco Or Nicotine? Yes Vape Information not available 07/29/2021 Sex: Unknown Functional Status Question Answer Note LastModified by Organizat ion Details LastModified Time Do you have difficulty walking or climbing stairs? No Information not available 07/29/2021 Do you have difficulty doing errands alone? No Information not available 07/29/2021 Are you able to care for yourself? Yes Information not available 07/29/2021 Do you have difficulty dressing or bathing? No Information not available 07/29/2021 What is your exercise level? Occasional Information not available 07/29/2021 Mental Status Question Answer Note LastModified by Organization D etails LastModified Time Do you have difficulty concentrating, remembering or making decisions? No Information no t available 07/29/2021 Family History Relationship Description Onset Age of this Age Resolved Age Notes LastModified by Organization Details LastModified Time Mother Diabetes mellitus [email or web address] Not available 2021 10:52:24 Father Hypertensive disorder ymagide Not available 2021 10:52:32 Medical History Condition Response ARTHRITIS N HEADACHES Y STROKE N URINARY/BLADDER PROBLEMS N SKIN PROBLEMS N BLADDER OR KIDNEY PROBLEMS N EMPHYSEMA N Gerd N DIABETES N HIGH CHOLESTEROL N HEARTBURN / REFLUX N COPD N EYE PROBLEMS N HEPATITIS / LIVER DISEASE N PULMONARY DISEASE N GOUT N SEIZURES N BOWEL PROBLEMS N BACK / NECK PROBLEMS N DEPRESSION (INCLUDING POST ) Y THYROID DISEASE N DIZZINESS N KIDNEY DISEASE N EAR PROBLEMS N HYPERTENSION N HIV / AIDS N ADHD Y ANXIETY DISORDER Y Sleep apnea N ANEMIA/BLOOD DISORDER N OSTEOPOROSIS N HEART DISEASE N CANCER: TYPE N Gynecological History Statement/Question Response Duration of Flow (days) 5 Current Control Method IUD Date of LMP 06/21/2021 Obstetrics History GPAL:G 0 P 0 0 0 0 Immunizations Vaccine Type Date Status Note Provider Nam e and Address Organization Details Recorded Time COVID-19, mRNA, LNP-S, PF, 30 mcg/0.3 mL dose 07/24/2020 completed Not Available [facility] 3 22:21:41 COVID-19, mRNA, LNP-S, PF, 30 mcg/0.3 mL dose 08/22/2020 completed Not Available [facility] 3 22:21:41 Past Encounters Encounter ID Performer Location Encounter Start Date Encounter Closed Date Diagnosis/Indication Diagnosis SNOMED-CT Code Diagnosis ICD10 Code Diagnosis Note [id number] Matthieu Garber PA-C [facility] [address] [address] 07/29/2021 10:14:32 07/30/2021 17:24:11 Severe major depression without psychotic features 06793023 F32.2 Generalize d anxiety disorder 48868445 F41.1 Borderline personality disorder 04453743 F60.3 History of eating disorder 5753744299 30422 Z86.59 Sleep terror disorder 89 617141 F51.4 Sleep disorder 88716091 G47.9 Asthma 885595908 J45.90 9 Posttrauma tic stress disorder 13195953 F43.10 Screening for disorder 301799340 Z13.9 Vitamin D deficiency 347 05166 E55.9 Fatigue 09316722 R53.83 [id number] Matthieu Garber PA-C [facility] [address] [facility] [address] [place] [address] 08/27/2021 10:51:36 08/29/2021 10:00:55 Headache 79547467 R51.9 Likely secondary to inadequate hydration and nutritionW e will obtain magnesium levelCBC and CMP within normal limits excluding some hyperglyce alice? t car[place] it is unclear whether patient was fasting Vitamin D deficiency 347 32724 E55.9 Vitamin D was not obtained despite order being placed Patient has agreed to complete these prior to her next follow-up Hyperglycemia 23427316 R 73.9 When obtaining magnesium vitamin D we will also screen for diabetes due to hyperglyce alice Asthma 905246577 J45.90 9 History of eating disorder 0966400458 50494 Z86.59 Followed by psychiatry and counseling Severe michael or depression without psychotic features 91548145 F32.2 Followed by psychiatry and counseling -Dr. Davenport es SI/HI Generalize d anxiety disorder 98259946 F41.1 Followed by psychiatry and counseling -Dr. Aguillon and T4 WNL Borderline personality disorder 32186958 F60.3 Followed by psychiatry and counseling -Dr. Berrios Posttrauma tic stress disorder 00630492 F43.10 Fatigue 89795885 R53.83 B12 low normal at 312- advised she begin daily dissovable tab or sublingual drop Nausea 241896753 R11.0 [id number] Matthieu Garber PA-C [facility] [address] [facility] [address] [place] [address] 09/30/2021 10:34:37 10/01/2021 16:16:08 Headache 13249990 R51.9 Likely secondary to inadequate hydration, sleep, and nutrition Hyperglycemia 77691900 R 73.9 Patient agrees to complete labs ordered at previous visit Asthma 176639724 J45.90 9 History of eating disorder 6042589090 33387 Z86.59 Followed by psychiatry and counseling see hpi Severe michael or depression without psychotic features 66737491 F32.2 Followed by psychiatry and counseling -Dr. Villarreal hpi Generalize d anxiety disorder 43552010 F41.1 Followed by psychiatry and counseling -Dr. Villarreal HPI Borderline personality disorder 12561480 F60.3 Followed by psychiatry and counseling -Dr. Berrios Posttrauma tic stress disorder 08892490 F43.10 per patient Mood disorder 83717140 F 39 Suspected diagnosis of bipolarPat ient will restart Vraylar as she had success with this in the past.Josette rubene Vipul and till she sees Dr. Berrios on Tuesday where he can create further care plan.admit s to SI though reports no plan- SEE HPI Sleep disorder 07613291 G47.9 Advised patient to discuss with Dr. Berrios [id number] [facility] [address] [address] 01/11/2022 16:22:23 01/12/2022 13:39:21 Bulimia nervosa 18042303 F50.2 Mood disorder 87881504 F 39 Patient has stopped all psych medication but states that mood has been stable.She continues to see psychologi st for counseling .Denies any SI/HI Headache 30181043 R51.9 Likely secondary to inadequate hydration, sleep, and nutrition. Hyperglycemia 92768116 R 73.9 Labs being drawn this week. Asthma 256808447 J45.90 9 Stable. History of eating disorder 0594252510 47325 Z86.59 Followed by psych and counseling . Severe michael or depression without psychotic features 03305996 F32.2 Followed by psych and counseling . Generalize d anxiety disorder 18302393 F41.1 Followed by psych and counseling . Venereal d isease screening 175367923 Z11.3 [facility] 612815767 Z30.9 Wants to discuss IUD Adult heal th examination 292034386 Z00.00 Patient will return this week for labs. We discussed improving protein/fl uid intake. [id number] FELIBERTO EDWARDS NP [facility] [place] [address] [facility], [facility] [address] [place] [address] 02/07/2022 09:27:09 02/08/2022 10:33:17 [id number] [facility] [facility] [address] [facility] [address] [place] [address] 03/10/2022 10:53:25 03/10/2022 13:29:35 Mood disorder [id number] F39 Stable. Denies SI/HI. Followed by psychology for counseling . Previous:P álvaro has stopped all psych medication but states that mood has been stable.She continues to see psychologi st for counseling .Denies any SI/HI Headache [id number] R51.9 Likely secondary to inadequate hydration, sleep, and nutrition. Hyperglycemia 93141225 R 73.9 Labs being drawn this week. Asthma [id number] J45.90 9 Stable. History of eating disorder [id number] 60633 Z86.59 Followed by psych and counseling .Recommend ed that patient drink Ensure/pro tein shakes. Discussed that due to her lack of calorie intake there should be no issue with high-calor ie shakes/ drinks. Severe michael or depression without psychotic features 11629041 F32.2 Followed by psych and counseling . Generalize d anxiety disorder [id number] F41.1 Followed by psych and counseling . Venereal d isease screening 407035078 Z11.3 Patient requests STD screening at last visit. Labs will be completed this week. Atopic dermatitis [id number] L20.9 Refilled Rx for pruritic rash Candidal intertrigo [id number] B37.2 See above. Discussed medication in detail. Suspect possible hayley infection Due to appearance and history. Discussed measures to minimize moisture within skin folds to minimize recurrence . Instructed patient to cleanse intertrigi nous areas daily with mild soap followed by drying with a dehairing machine tender on a cool setting. Subsequent ly, a drying powder can be applied.We will also try triamcinol one cream intermitte ntly as well.Advis ed patient to avoid shaving and axillary region.Fol low up if no improvemen t. [id number] [facility] [place] [address] [address] 09/13/2022 15:10:39 09/14/2022 09:07:17 New daily persistent headache [id number] 99650 G44.52 Discussed possible etiologies including medication overuse headache, stress, and iodine, dietary, migraine, sinus congestion /allergies Recommend patient get eyes checked and keep up with yearly exams.We will check CMP, Mg, MARY, sed rate. May consider imaging if no improvemen t.F/U in 1 month or sooner if any worsening of symptoms. Mood disorder 07182950 F 39 Stable at this time without medication . Denies SI/HI. Followed by psychology for counseling . Previous:P álvaro has stopped all psych medication but states that mood has been stable.She continues to see psychologi for counseling .Denies any SI/HI Headache 31671426 R51.9 Likely secondary to inadequate hydration, sleep, and nutrition. Asthma 742251803 J45.90 9 Stable. 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 Generalize d anxiety disorder 07180679 F41.1 Followed by psych and counseling .Has taken propanolol in the past. Would like to try taking this without any additional medication s/mood stabilizer sWe will start propranolo l 10 mg - discussed in detail.F/U 1 mo Migraine 91935013 G43.90 9 Patient given samples to try Nurtec or Ubrelvy to see which works better. She may also be a candidate for Qulipta. Patient would like to try abortive therapy before preventati ve.We will follow-up in 1 month [id number] [facility] [address] [address] 10/15/2022 15:55:59 10/18/2022 19:52:34 New daily persistent headache [id number] 91531 G44.52 pt did not have labs drawnpt plans to follow up with chiropract orworsened lately due to stress of movingf/u prn 09/13/22Disc ussed possible etiologies including medication overuse headache, stress, and iodine, dietary, migraine, sinus congestion /allergies Recommend patient get eyes checked and keep up with yearly exams.We will check CMP, Mg, MARY, sed rate. May consider imaging if no improvemen t.F/U in 1 month or sooner if any worsening of symptoms. Migraine 65974804 G43.90 9 Did try nurtec and ubrelvy but pt unsure if she is having migrainesa ttributes to stress/nec k pain Previous note:Cora aponte given samples to try Nurtec or Ubrelvy to see which works better. She may also be a candidate for Qulipta. Patient would like to try abortive therapy before preventati ve.We will follow-up in 1 month Mood disorder [id number] F 39 Stable at this time without medication . Denies SI/HI. Followed by psychology for counseling . Previous:Ronald rea has stopped all psych medication but states that mood has been stable.She continues to see psychologi st for counseling .Denies any SI/HI Headache 56280912 R51.9 Likely secondary to inadequate hydration, sleep, stress, and nutrition. Related to MSK/neck? She plans to follow up with chiropract or Asthma 459576766 J45.90 9 Stable. History of eating disorder [id number] 23483 Z86.59 Followed by psych and counseling . 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 Generalize d anxiety disorder 36687833 F41.1 Reports improvemen t in anxiety since starting propranolo l.We will continue at this time. Previous note:Follo wed by psych and counseling .Has taken propanolol in the past. Would like to try taking this without any additional medication s/mood stabilizer sWe will start propranolo l 10 mg - discussed in detail.F/U 1 mo Health Concerns Section Related Observation LastModified by Organization Detai ls LastModified Time None Recorded Concern Status LastModified by Organization Details LastModified Time None Recorded Advance Directives Directive N: Payers Encounter Date Sequence Insurance Name Policy Number Policy Coffman Covered Member ID Coffman Member ID Guarantor Name 09/30/2021 1 [place] [id number] Roberto Lee [id number] Sally Aguilarvey 01/11/2022 1 [place] [id number] Roberto Lee [id number] Sally Jesus 03/10/2022 1 [place] [id number] Roberto Aguilarvey [id number] Sally Jesus 09/13/2022 1 [place] [id number] Roberto Lee [id number] Sally Jesus 10/15/2022 1 [place] [id number] Roberto Lee [id number] Sally Lee Notes Date Note Type Note Provider Name and Address Organization Details Recorded Time 09/30/2021 text/html 21-year-old morales buck presents today in acute distress.Patient states she has been without her medications x3 weeks.She states she was forced her father to come here and restart her medications.She states she follows up for the first time as an outpatient with Dr. Berrios on Tuesday.She states I know I need to start my meds back when you just did not change them .She states the [facility] psychiatrist would change my medications reporting that her counselor told her she was on all the wrong meds .Patient states she had to cancel her appointment she previously had scheduled with Dr. Berrios stating she was out of town and got COVID.She states she is frustrated because he never has anything for months out .Patient does report suicidal ideation, though she states I will never do it because what if I fail and end up like a vegetable .Asked patient had a plan, she states I do not know how I would do it .She reports continued difficulties with sleep. States she got 1 hour of sleep last night which seems to be a regular thing for her. 08/27/2021:21-year-old female presents today for follow-up with her mother.She and her mother got into an argument and her mother stormed out while my nurse was in the room, prior to me entering.She states her mother is nosy and would have asked too many questions .Patient states she had a good vacation, but states she drank too much .She states she has had a headache and stomachache since she returned, though she states this is nothing new .Patient states I know I do not eat enough or drink enough, I am probably deficient in every vitamin .She states I pretty much have the diet of the toddler .She has a follow-up coming up with Dr. Berrios in September. All labs were reviewed extensively. All questions were answered and medication list was reviewed.Patient states her therapist feels she is on all the wrong medications .She states her therapist feels very strongly that she is bipolar and has borderline personality disorder. She states I am hoping Dr. Berrios is open to switching her medications. 07/29/2021:21 year old female presents today to establish care.Patient is here today requesting refills on her psychiatric medications.Patient is typically followed by Dr. Berrios, though they are not able to see her until September.Patient current chronic conditions include generalized anxiety, depression, ADHD, borderline personality disorder, asthma, and states she has a new diagnosis of PTSD. Patient also reports history of disordered eating, both bulimia and anorexia.Patient reports having completed several rounds of inpatient and residential treatments.She denies any suicidal or homicidal ideations, though she does have a history of attempts. States her most recent was in April of this year, when her father caught her with pills all over the bed .Patient's family history is remarkable for type 2 diabetes (mother) and hypertension (father).Patient reports some GI complaints that she attributes to her history of disordered eating. She states she feels her stomach will never be the same .Patient denies any chest pain, shortness of breath, cough, fever, hematochezia, hemoptysis, weight changes, headaches, or any recent/abrupt changes in mood. Patient states she is about to go on vacation and is needing a Cymbalta refill prior to leaving. Matthieu Garber PA-C [address] [place], [address], [facility] 10/01/2021 08:25:32 01/11/2022 text/html 21 year old male who presents today with PMH eating disorder, mood disorder, and anxiety/depression who presents for annual physical and to discuss ongoing issues with nausea, low energy, and headaches. She was taking Vraylar, Duloxetine, and Latuda but states that she stopped taking all of these since her last visit here . She states that she feels mentally better than when before she was placed on these meds.She does continue to struggle with eating disorders. States that she is usually very concerned about calorie intake and has been diagnosed with bulimia in the past, 2 years ago. She states that her biggest concern is body dysmorphia but she has been going to counseling at [facility] for this.She believes that stomach issues and headaches are secondary to lack of protein/water intake. States that she tries to drink gatorade/protein drinks.She denies any suicidal ideation.She is also interested in seeing gynecology to discuss other options for control method. States that she can never remember to take her pills and ends up missing a lot of days . She is not interested in Depo shot or implant but would like to know more about IUD. We did discuss this today and we will refer her to gynecology.Denies any fever, chills, chest pain, shortness of breath. No other concerns at this time. Patient is hemodynamically stable. -----09/30/2021:21-yea r-old female presents today in acute distress.Patient states she has been without her medications x3 weeks.She states she was forced her father to come here and restart her medications.She states she follows up for the first time as an outpatient with Dr. Berrios on Tuesday.She states I know I need to start my meds back when you just did not change them .She states the [facility] psychiatrist would change my medications reporting that her counselor told her she was on all the wrong meds .Patient states she had to cancel her appointment she previously had scheduled with Dr. Berrios stating she was out of town and got COVID.She states she is frustrated because he never has anything for months out .Patient does report suicidal ideation, though she states I will never do it because what if I fail and end up like a vegetable .Asked patient had a plan, she states I do not know how I would do it .She reports continued difficulties with sleep. States she got 1 hour of sleep last night which seems to be a regular thing for her. 08/27/2021:21-year-old female presents today for follow-up with her mother.She and her mother got into an argument and her mother stormed out while my nurse was in the room, prior to me entering.She states her mother is nosy and would have asked too many questions .Patient states she had a good vacation, but states she drank too much .She states she has had a headache and stomachache since she returned, though she states this is nothing new .Patient states I know I do not eat enough or drink enough, I am probably deficient in every vitamin .She states I pretty much have the diet of the toddler .She has a follow-up coming up with Dr. Berrios in September. All labs were reviewed extensively. All questions were answered and medication list was reviewed.Patient states her therapist feels she is on all the wrong medications .She states her therapist feels very strongly that she is bipolar and has borderline personality disorder. She states I am hoping Dr. Berrios is open to switching her medications. 07/29/2021:21 year old female presents today to establish care.Patient is here today requesting refills on her psychiatric medications.Patient is typically followed by Dr. Berrios, though they are not able to see her until September.Patient current chronic conditions include generalized anxiety, depression, ADHD, borderline personality disorder, asthma, and states she has a new diagnosis of PTSD. Patient also reports history of disordered eating, both bulimia and anorexia.Patient reports having completed several rounds of inpatient and residential treatments.She denies any suicidal or homicidal ideations, though she does have a history of attempts. States her most recent was in April of this year, when her father caught her with pills all over the bed .Patient's family history is remarkable for type 2 diabetes (mother) and hypertension (father).Patient reports some GI complaints that she attributes to her history of disordered eating. She states she feels her stomach will never be the same .Patient denies any chest pain, shortness of breath, cough, fever, hematochezia, hemoptysis, weight changes, headaches, or any recent/abrupt changes in mood. Patient states she is about to go on vacation and is needing a Cymbalta refill prior to leaving. [facility] [address] [place], [address], [facility] 01/12/2022 08:24:18 03/10/2022 text/html 22 year old male who presents today with PMH eating disorder, mood disorder, and anxiety/depression who presents for annual physical and to discuss ongoing issues with nausea, low energy, and headaches presents today for follow up. Did not complete labs yet but will be given order today.States that she has had a stressful past few weeks. States that she has had a anorexia relapse over the past few weeks and was unable to eat. She has lost 10 pounds since last visit. She states that she has been trying to drink protein shakes and Ensure but is also concerned about calorie content of these. She continues to be closely followed by psychiatry and counseling. No SI/HI.She does report pruritic rash in right axilla that started 2 weeks ago. States that she thought it was eczema and has tried applying triamcinolone cream once. She has not been shaving underarms. Started to develop similar rash in left axilla.States that she has never had any issues with yeast infections on her skin.No other complaints today. -----previous note:21 year old male who presents today with PMH eating disorder, mood disorder, and anxiety/depression who presents for annual physical and to discuss ongoing issues with nausea, low energy, and headaches. She was taking Vraylar, Duloxetine, and Latuda but states that she stopped taking all of these since her last visit here . She states that she feels mentally better than when before she was placed on these meds.She does continue to struggle with eating disorders. States that she is usually very concerned about calorie intake and has been diagnosed with bulimia in the past, 2 years ago. She states that her biggest concern is body dysmorphia but she has been going to counseling at [facility] for this.She believes that stomach issues and headaches are secondary to lack of protein/water intake. States that she tries to drink gatorade/protein drinks.She denies any suicidal ideation.She is also interested in seeing gynecology to discuss other options for control method. States that she can never remember to take her pills and ends up missing a lot of days . She is not interested in Depo shot or implant but would like to know more about IUD. We did discuss this today and we will refer her to gynecology.Denies any fever, chills, chest pain, shortness of breath. No other concerns at this time. Patient is hemodynamically stable. -----09/30/2021:21-yea r-old female presents today in acute distress.Patient states she has been without her medications x3 weeks.She states she was forced her father to come here and restart her medications.She states she follows up for the first time as an outpatient with Dr. Berrios on Tuesday.She states I know I need to start my meds back when you just did not change them .She states the [facility] psychiatrist would change my medications reporting that her counselor told her she was on all the wrong meds .Patient states she had to cancel her appointment she previously had scheduled with Dr. Berrios stating she was out of town and got COVID.She states she is frustrated because he never has anything for months out .Patient does report suicidal ideation, though she states I will never do it because what if I fail and end up like a vegetable .Asked patient had a plan, she states I do not know how I would do it .She reports continued difficulties with sleep. States she got 1 hour of sleep last night which seems to be a regular thing for her. 08/27/2021:21-year-old female presents today for follow-up with her mother.She and her mother got into an argument and her mother stormed out while my nurse was in the room, prior to me entering.She states her mother is nosy and would have asked too many questions .Patient states she had a good vacation, but states she drank too much .She states she has had a headache and stomachache since she returned, though she states this is nothing new .Patient states I know I do not eat enough or drink enough, I am probably deficient in every vitamin .She states I pretty much have the diet of the toddler .She has a follow-up coming up with Dr. Berrios in September. All labs were reviewed extensively. All questions were answered and medication list was reviewed.Patient states her therapist feels she is on all the wrong medications .She states her therapist feels very strongly that she is bipolar and has borderline personality disorder. She states I am hoping Dr. Berrios is open to switching her medications. 07/29/2021:21 year old female presents today to establish care.Patient is here today requesting refills on her psychiatric medications.Patient is typically followed by Dr. Berrios, though they are not able to see her until September.Patient current chronic conditions include generalized anxiety, depression, ADHD, borderline personality disorder, asthma, and states she has a new diagnosis of PTSD. Patient also reports history of disordered eating, both bulimia and anorexia.Patient reports having completed several rounds of inpatient and residential treatments.She denies any suicidal or homicidal ideations, though she does have a history of attempts. States her most recent was in April of this year, when her father caught her with pills all over the bed .Patient's family history is remarkable for type 2 diabetes (mother) and hypertension (father).Patient reports some GI complaints that she attributes to her history of disordered eating. She states she feels her stomach will never be the same .Patient denies any chest pain, shortness of breath, cough, fever, hematochezia, hemoptysis, weight changes, headaches, or any recent/abrupt changes in mood. Patient states she is about to go on vacation and is needing a Cymbalta refill prior to leaving. [facility] [address], [place], [address], [facility] 03/10/2022 11:55:21 09/13/2022 text/html 22-year-old morales buck with PMH eating disorder, mood disorder, anxiety, depression presents today to discuss persistent daily headaches x1 month. She reports associated dizziness, pressure, pounding and had , photosensitivity, NauseaStates that she occasionally takes Advil or ibuprofen with minimal to no relief. States that she does not try to take this often.She does admit to increased stress at home due to family stress, plans of moving, work. She is aware that stress can be a cause of headaches as well as nutrition/sleep. She sees a counselor currently but not taking any medications. She does have a history of anorexia but states that she has been trying to eat better and drinking Ensure when she is not eating enough.She has seen a chiropractor with minimal to no relief as well.No other complaints today. [facility] [address] [place], [address], [facility] 09/13/2022 16:07:02 10/15/2022 text/html 22-year-old femrazia buck with PMH eating disorder, mood disorder, anxiety, depression presents via telehealth for follow up. Patient did not have labs drawn prior to previous appt.She will moving in 3 weeks with her family. Has continued to have HAs but relates this to neck pain. Plans to f/u with chiropractor because this has helped her in the past. Did try taking nurtec and ubrelvy prn but uncertain if HAs are true migraines.She has been taking propranolol and thinks that it has been helping with anxiety. No adverse effects.All questions were answered, medication list was discussed, and the patient is hemodynamically stable at this time. [facility] [address] [place], [address], [facility] 10/15/2022 16:29:46 OBGyn Episode No OBEpisode recorded.
--- OUTSIDE RECORDS SUMMARY | 2024-03-13 07:50 | XMS_ITS | Continuity of Care Document ---
Author Organization [employer] [facility] Address [address] [place] [address] Phone Care Team Providers Care Contracts Representative Name Role Phone Radha Sweeney Unavailable Unavailable Allergies, Adverse Reactions, Alerts Substance Reaction Status Criticality No Known Allergies Active No Inform ation Advance Directives Directive Yes / No Effective Date File Name No Information Encounters Encounter Description Practice Location Reason(s) For Visit Diagnoses Date Provider [facility], [address] [place] [address], [place], tel:[phone] Crisis EMPS [facility] Area No Information 2017 Al[address] josemaritza Garcia. [address] [place] [address], [id number], . tel:[phone] [employer] [facility], [address] [place] [address], [place], tel:[phone] Crisis EMPS [facility] Area 2017 Kurt Garcia. [address] [place] [address], [id number], . tel:[phone] As per patient privacy policy some of the clinical information may not be visible. Family History Family Member Type Diagnosis Age At Onset No Information Payers Payer name Insurance type Covered democrat ID Authoriza tion(s) No Information Social History Type Description Quantity Date Captured Comments Sex Female Smoking Status No Information Sexual Orientation Straight or heterosexual Gender Identity Female Chief Complaint And Reason For Visit No Information History Of Present Illness Encounter Date Complaint History Of Prese nt Illness No Information Instructions Date Instruction Additional Infor mation No Information Assessments Type Assessment Date No Information
== END 2024-03-13 07:48 | disposition home or self-care (01) ==
PROVIDERS: PCP Nurse Practitioner Adult Health; Visit Provider Nurse Practitioner Family
DX: K30 Functional dyspepsia (principal)
CPT/HCPCS: 78264; A9541

== ENCOUNTER 2024-04-06 10:56 | Outpatient (CLI) | payer OTHER, SELFPAY | END 2024-04-06 10:57 | disposition home or self-care (01) | LOC: MICIMG 10:56 | PROVIDERS: PCP Internal Medicine; Visit Provider Internal Medicine | DX: R51.9 Headache, unspecified (principal) | CPT/HCPCS: 70553; A9579 ==

== ENCOUNTER 2024-05-18 12:24 | Outpatient (CLI) | payer OTHER, SELFPAY ==
--- NOTE | 2024-05-18 | ECHO_ITS ---
Patient Info Name: Sally Lee Age: 24 years : 2000 Gender: Female Ht: 65 in Wt: 130 lbs BSA: 1.65 m2 HR: 69 bpm BP: 101 / 77 mmHg Heart Rhythm: Sinus Rhythm Technical Quality: Good Exam Date: 05/18/2024 12:39 PM Exam Location: Echo Lab Patient Status: Outpatient Admit Date: 05/18/2024 Staff Ordering Physician: OmkarJuan MD A R Collections Rep: Nora Jarvis RDCS Attending Provider: TiaraJuan MD Exam Type: CA echo doppler color flow Study Info Indications R00.2 - Palpitations Complete two-dimensional, color flow and Doppler transthoracic echocardiogram is performed. Summary 1. Complete two-dimensional, color flow and Doppler transthoracic echocardiogram is performed. 2. Left ventricular chamber dimension is normal. 3. Left ventricular systolic function is normal, estimated at 60-65%. 4. The left ventricular diastolic function is normal. 5. E/e' 5 is not elevated. 6. No pulmonary hypertension, estimated pulmonary arterial systolic pressure is 22 mmHg. 7. There is trace pulmonic regurgitation. Left Ventricle E/e' 5 is not elevated. Left ventricular chamber dimension is normal. Left ventricular systolic function is normal, estimated at 60-65%. The left ventricular diastolic function is normal. Right Ventricle Right ventricular systolic function is normal and with normal TAPSE 1.8 cm. Right ventricular chamber dimension is normal. Left Atria Left atrial chamber dimension is normal. Right Atria Right atrial chamber dimension is normal. Aortic Valve The aortic valve is trileaflet. There is no aortic valve stenosis. There is no aortic valve regurgitation. Pulmonic Valve There is trace pulmonic regurgitation. Mitral Valve There is no mitral valve stenosis. There is no mitral valve regurgitation. Tricuspid Valve There is no tricuspid valve regurgitation. No pulmonary hypertension, estimated pulmonary arterial systolic pressure is 22 mmHg. Pericardium/Pleural There is no pericardial effusion. Inferior Vena Cava Normal inferior vena cava with >50% collapse upon inspiration consistent with normal right atrial pressure, 5 mmHg. Aorta The aortic root size at the sinus of Valsalva is normal. Left Ventricular Outflow Tract Name Value Normal LVOT 2D LVOT Diameter 2.0 cm LVOT Doppler LVOT Peak Gradient 3 mmHg LVOT Mean Gradient 2 mmHg LVOT VTI 16 cm LVOT VTI/AV VTI Ratio 0.6 LVOT Stroke Volume 47 ml LVOT CO 3.4 l/min LVOT CI 2.1 l/min/m2 Pulmonic Valve Name Value Normal RVOT Doppler RVOT Peak Gradient 1 mmHg PV Doppler PV Peak Gradient 4 mmHg Mitral Valve Name Value Normal MV Doppler MV Decel Mora 592 cm/s2 MV PHT 36 ms MV Area (PHT) 6.1 cm2 4.0-5.0 MV Diastolic Function MV E Peak Velocity 73 cm/s MV A Peak Velocity 41 cm/s MV E/A 1.8 MV Decel Time 123 ms MV Annular TDI MV E/e' (Septal) 7.2 <=8.0 MV E/e' (Lateral) 5.0 <=8.0 MV E/e' (Average) 6.1 Tricuspid Valve Name Value Normal TV Regurgitation Doppler TR Peak Velocity 204 cm/s TR Peak Gradient 17 mmHg Estimated PAP/RSVP RA Pressure 5 mmHg <=5 PA Systolic Pressure 22 mmHg <36 RV Systolic Pressure 22 mmHg <36 Aorta Name Value Normal Ascending Aorta Ao Root Diameter (MM) 2.7 cm Ao Root Diam Index (MM) 1.7 cm/m2 Aortic Valve Name Value Normal AV Doppler AV Peak Velocity 133 cm/s AV Peak Gradient 7 mmHg AV Mean Gradient 4 mmHg AV VTI 25 cm AV Area (Cont Eq VTI) 1.9 cm2 >=3.0 AV Area (Cont Eq Carson) 2.0 cm2 AV Regurgitation 2D LVOT Area 3.0 cm2 Ventricles Name Value Normal LV Dimensions 2D/MM IVS Diastolic Thickness (2D) 0.8 cm 0.6-1.0 LVID Diastole (2D) 5.0 cm 3.8-5.2 LVIW Diastolic Thickness (2D) 0.8 cm 0.6-0.9 LVID Systole (2D) 3.1 cm 2.2-3.5 LVOT Diameter 2.0 cm LV Mass (2D Cubed) 127.79 g 67.00-162.00 LV Mass Index (2D Cubed) 78 g/m2 43-95 Relative Wall Thickness (2D) 0.31 LV Fractional Shortening/Ejection Fraction 2D/MM LV Fractional Shortening (2D) 38 % 27-45 LV EF (2D Teicholz) 67 % 54-74 LV Diastolic Volume (4C MOD) 83 ml LV EF (4C MOD) 60 % LV Diastolic Volume (2C MOD) 66 ml LV EF (2C MOD) 66 % LV Diastolic Volume (BP MOD) 75 ml 46-106 LV Diastolic Volume Index (BP MOD) 45 ml/m2 29-61 LV Systolic Volume (BP MOD) 28 ml 14-42 LV Systolic Volume Index (BP MOD) 17 ml/m2 8-24 LV EF (BP MOD) 62 % 54-74 LV Diastolic Length (4C) 7.4 cm LV Systolic Length (4C) 6.3 cm LV Stroke Volume (4C MOD) 50 ml Atria Name Value Normal LA Dimensions LA Dimension (MM) 3.0 cm 2.7-3.8 LA Volume (4C A-L) 27 ml LA Volume (BP A-L) 31 ml RA Dimensions RA Area (4C) 9.6 cm2 <=18.0 Report Signatures
--- OUTSIDE RECORDS SUMMARY | 2024-05-18 12:30 | XMS_ITS ---
Author Organization [facility] Address [address] [place] [id number] Care Team Providers Care Teacher Counselor Name Role Phone Robyn Gallardo Unavailable [phone] Juaquin MAC, Eli Unavailable Unavailab le ZZ-Migration, Provider Unavailable Unavailab le REASON FOR VISIT Multum To Medispan Conversion Encounter Medications Medication SIG (Take, Route, Frequency, Duration) Notes Start Date End Date Status VANICREAM FREE & CLEAR CONDITIONER N/A WORK INTO HAIR, ALLOW TO REMAIN 1-3 MINUTES, RINSE THOROUGHLY WITH WARM WATER (AVOID EYES) TOPICALLY QDAY for 30 DAY(S) *Please review for potential replacement for e-prescription and drug interaction check* Active VANICREAM FREE & CLEAR SHAMPOO N/A WET HAIR, APPLY, LATHER AND THEN RINSE (AVOID EYES) TOPICALLY QDAY for 30 DAY(S) *Please review for potential replacement for e-prescription and drug interaction check* Active VANICREAM LITE LOTION - 1 CHIDI APPLIED TOPICALLY 2 TIMES A DAY for 30 DAY(S) *Please review for potential replacement for e-prescription and drug interaction check* Active Xyzal Allergy 24HR 5 MG 1 tab(s) orally once a day (in the evening) for 30 day(s) Active Triamcinolone Acetonide 0.1 % 1 chidi applied topically 3 times a day for 30 day(s) Active PROAIR HFA 90 MCG/INH 2 PUFF(S) INHALED 4 TIMES A DAY for 30 DAY(S) *Please review for potential replacement for e-prescription and drug interaction check* Active Xyzal Allergy 24HR 5 MG 1 tablet PO daily for 30 Active ZyrTEC Allergy 10 MG 1 tab(s) orally once a day Not-Taking VANICREAM CLEANSING BAR - 1 CHIDI APPLIED TOPICALLY 2 TIMES A DAY for 30 DAY(S) *Please review for potential replacement for e-prescription and drug interaction check* Active Adderall XR 25 MG 1 cap(s) orally once a day (in the morning) for 30 day(s) Active FLUoxetine HCl 40 MG 1 cap(s) orally once a day for 30 day(s) Active Junel FE 02/26 WITH IRON 20 MCG-1 MG TK 1 T PO DAILY DIRECTED for 28 *Please review and pick correct strength-formulat ion from [employer] options. If intended option is not shown, discontinue and re-order from Quick Search* Active Singulair 10 MG 1 tab(s) orally once a day for 30 day(s) Active Eucrisa 2 % 1 chidi applied topically 2 times a day Active PROzac 40 MG 1 cap(s) orally once a day for 30 day(s) Active Encounters Encounter Location Date Provider Diagnosis [address] [address] 07/23/2023 Provider Walter Atopic dermatitis, unspecified L20.9 and Other allergic rhinitis J30.89 Assessments Encounter Date Diagnosis (ICD Code) Assessment Notes Treatment Notes Treatment Clinical Notes Section Notes 07/23/2023 Atopic dermatitis, unspecified (ICD-10 - L20.9) 07/23/2023 Other allergic rhinitis (ICD-10 - J30.89) Plan Of Treatment Medication Medication Name Sig Start Date Stop Date Notes Xyzal Allergy 24HR 5 MG 1 tab(s) orally once a day (in the evening) for 30 day(s) Triamcinolone Acetonide 0.1 % 1 chidi appl ied topically 3 times a day for 30 day(s) Progress Notes * Sumeet SCHMIDTOB: 002 (24 yo F)Acc No.[id number]:07/23/2023 Patient: Katelyn LOZA Sally Provider: Ronald Romano :2000 A ge:23 Y S ex:Female Date:07/23/2023 Address:[address] [place], [place] [id number] Subjective: * Chief Complaints: * 1 . [facility] * Medical History: * Medications: T aking Junel FE 02/26 WITH IRON 20 MCG-1 MG TABLET TK 1 T PO DAILY DIRECTED , Notes to Pharmacist: *Please review and [facility]. If intended option is not shown, discontinue and re-order from Quick Search*, Taking Singulair 10 MG Tablet 1 tab(s) orally once a day , Taking Eucrisa 2 % Ointment 1 chidi applied topically 2 times a day , [...] Taking VANICREAM CLEANSING BAR - SOAP 1 CHIDI APPLIED TOPICALLY 2 TIMES A DAY , [...] Taking VANICREAM LITE LOTION - LOTION 1 CHIDI APPLIED TOPICALLY 2 TIMES A DAY , [...] Procedure Codes: * Electronic signature of Bear BarZ-Migration on 05/18/2024 at 12:30 PM CDT Sign off status: Pending * Provider: Ronald davis Migration Date: 0 07/23/2023 Generated for Aniyah santacruz/Pawan/Mary Joitting on: 0 05/18/2024 12:30 PM CDT
--- OUTSIDE RECORDS SUMMARY | 2024-05-18 12:31 | XMS_ITS | Patient Health Record ---
Author Organization [facility] Address [address] [place] [address] Care Team Providers Care Medical Education Coordinator Name Role Phone Robyn Gallardo Unavailable [phone] Eli Del Angel Unavailable Unavailab le ZZ-Migration, Provider Unavailable Unavailab le Reason For Referral No Information Medications Medication SIG (Take, Route, Frequency, Duration) Notes Start Date End Date Status FLUoxetine HCl 40 MG 1 cap(s) orally once a day for 30 day(s) Active ZYRTEC 10 mg 1 tab(s) orally once a day Not-Taking XYZAL 5 mg 1 tab(s) orally once a day (in the evening) for 30 day(s) Active Junel FE 02/26 WITH IRON 20 MCG-1 MG TK 1 T PO DAILY DIRECTED for 28 *Please review and pick correct strength-formulat ion from [employer] options. If intended option is not shown, discontinue and re-order from Quick Search* Active Singulair 10 MG 1 tab(s) orally once a day for 30 day(s) Active Eucrisa 2 % 1 chidi applied topically 2 times a day Active TRIAMCINOLONE ACETONIDE TOPICAL 0.1% 1 chidi applied topically 3 times a day for 30 day(s) Active Triamcinolone Acetonide 0.1 % 1 chidi applied topically 3 times a day for 30 day(s) Active EUCRISA 2% 1 chidi applied topically 2 times a day Active VANICREAM FREE & CLEAR CONDITIONER N/A WORK INTO HAIR, ALLOW TO REMAIN 1-3 MINUTES, RINSE THOROUGHLY WITH WARM WATER (AVOID EYES) TOPICALLY QDAY for 30 DAY(S) *Please review for potential replacement for e-prescription and drug interaction check* Active SINGULAIR 10 mg 1 tab(s) orally once a day for 30 day(s) Active VANICREAM FREE & CLEAR SHAMPOO N/A WET HAIR, APPLY, LATHER AND THEN RINSE (AVOID EYES) TOPICALLY QDAY for 30 DAY(S) *Please review for potential replacement for e-prescription and drug interaction check* Active JUNEL FE 02/26 with iron 20 mcg-1 mg TK 1 T PO DAILY DIRECTED for 28 Active VANICREAM LITE LOTION - 1 CHIDI APPLIED TOPICALLY 2 TIMES A DAY for 30 DAY(S) *Please review for potential replacement for e-prescription and drug interaction check* Active Xyzal Allergy 24HR 5 MG 1 tab(s) orally once a day (in the evening) for 30 day(s) Active ADDERALL XR 25 mg 1 cap(s) orally once a day (in the morning) for 30 day(s) Active PROZAC 40 mg 1 cap(s) orally once a day for 30 day(s) Active FLUOXETINE 40 mg 1 cap(s) orally once a day for 30 day(s) Active XYZAL 5 mg 1 tablet PO daily for 30 Active PROAIR HFA 90 MCG/INH 2 PUFF(S) [...] for e-prescription and drug interaction check* Active PROzac 40 MG 1 cap(s) orally once a day for 30 day(s) Active Adderall XR 25 MG 1 cap(s) orally once a day (in the morning) for 30 day(s) Active Immunizations Vaccine Route Administration Date Status Comme nts DTaP < 7 y/o Unknown 01/25/2006 Administered Portal Inf ormation Hepatitis B (-) Unknown 2000 Administered Por adonis Information Influenza Unknown 10/27/2017 Administered Portal Infor mation NOC PedvaxHIB Unknown 05/22/2003 Administered Portal In formation NOC Tdap Unknown 03/13/2013 Administered Portal Infor mation Social History Tobacco Use: Social History Observation Description Date Details (start date - stop date) Never Smoker NA - NA Smoking Smart Form: Question Answer Notes Are you a: never smoker Problems Problem Type SNOMED Code ICD Code Onset Dates Problem Status W/U Status Risk Notes Problem Chronic allergic conjunctivitis (11232288) Other chronic allergic conjunctivitis (H10.45) Active confirmed Problem Allergic rhinitis (85968374) Other allergic rhinitis (J30.89) Active confirmed Problem Cough (96426207) Cough (R05) Active confirmed Problem Atopic dermatitis (40116274) Atopic dermatitis, unspecified (L20.9) Active confirmed Encounters Encounter Location Date Provider Diagnosis [address] [address] 07/23/2023 Provider KARAN-Rosalina Atopic dermatitis, unspecified L20.9 and Other allergic rhinitis J30.89 Assessments Encounter Date Diagnosis (ICD Code) Assessment Notes Treatment Notes Treatment Clinical Notes Section Notes 07/23/2023 Atopic dermatitis, unspecified (ICD-10 - L20.9) 07/23/2023 Other allergic rhinitis (ICD-10 - J30.89) Plan Of Treatment No Information Insurance Providers Payer Name Payer Address Payer Phone Subscriber Number Group Number Insured Name Patient Relationship to Insured Coverage Start Date Coverage End Date [facility] [address] [place] [address] [id number] Roberto Lee Child - Insured has Financial Responsibility Medical (General) History Medical History History ICD Code Dysthymic disorder Attention-deficit hyperactivity disorder , unspecified type Dermatitis, unspecified Surgical History Surgery Date(Month/Year)
--- OUTSIDE RECORDS SUMMARY | 2024-05-18 12:31 | XMS_ITS | Data Portability ---
Author Organization [facility], [facility] [place] [address] Assessment Encounter Date Assessment Date Assessment LastModified by Organization Details LastModified Time 02/07/2022 02/07/2022 Patient tested positive for strep and negative for covid and flu. I will send in cefdinir and cough medication that will help her rest at night. She was instructed to change out her toothbrush after 48 hours of being on an antibiotic. She was instructed to get plenty of rest and fluids, drink honey and lemon tea, warm salt water gargles. OTC meds as needed. Follow up with PCP or go to the ER for any chest pain, shortness of breath, throat swelling, difficulty swallowing or inability to tolerate PO. [email or web address] Not available 02/07/2022 10:07:29 Plan of Treatment Reminders Order Date Submit Date Provider Last Modified By Organization Details Last Modified Time Details Appointments None recorded. Lab rapid flu (A+B) 2022 023 [email or web address] In-Office Order, Internal Use Only DO Not Attach Compendium DO Not Attach Compendium, Do Not Delete/merge, [id number] 10:03:26 rapid SARS CoV + SARS CoV 2 Ag, QL IA, respiratory specimen 2022 023 [email or web address] In-Office Order, Internal Use Only DO Not Attach Compendium DO Not Attach Compendium, Do Not Delete/merge, [id number] 3 10:03:26 rapid strep group A, throat 2022 023 [email or web address] In-Office Order, Internal Use Only DO Not Attach Compendium DO Not Attach Compendium, Do Not Delete/merge, [id number] 10:03:26 Referral None recorded. Procedures None recorded. Surgeries None recorded. Imaging None recorded. Medication Orders cefdinir 300 mg capsule 2022 023 [id number] [address] [place], [address], 10:03:29 promethazin e-DM 6.25 mg-15 mg/5 mL oral syrup 2022 023 [id number], [address] [place], [address], 10:03:56 Patient TargetsNo targets recorded. Patient Instructions Encounter Date Encounter Id Patient Instructions Last Modified By Organization Details Last Modified Time 02/07/2022 [id number] strep throat: care instructions [email or web address] Not available 02/07/2022 10:03:26 Reason for Referral None Reported. Results Created Date Observation Date Name Description Value Unit Range Abnormal Flag Note LastModifiedBy Organization Detail LastModifiedTime 02/07/1902/07/2022 rapid strep group A, throa t Strep A positi ve Not Available In-Office Order Internal Use Only DO Not Attach Compendium DO Not Attach Compendium, Do Not Delete/merge, 02/07/2022 09:46:55 02/07/1902/07/2022 rapid strep group A, throa t Gore Stitcher : Quidel Not Available In-Off ice Order Internal Use Only DO Not Attach Compendium DO Not Attach Compendium, Do Not Delete/merge, 02/07/2022 09:46:55 02/07/19 23 02/07/2022 rapid strep group A, throa t Lot. # [id number] Not Available In-Office Order Internal Use Only DO Not Attach Compendium DO Not Attach Compendium, Do Not Delete/merge, 02/07/2022 09:46:55 02/07/19 23 02/07/2022 rapid strep group A, throa t Expiration Date: 4 Not Available In-Office Order Internal Use Only DO Not Attach Compendium DO Not Attach Compendium, Do Not Delete/merge, 02/07/2022 09:46:55 02/07/19 23 02/07/2022 rapid SARS CoV + SARS CoV 2 Ag, QL IA, respi rator y speci men SARS/COVID (reference range: negative) negati ve Not Available In-Office Order Internal Use Only DO Not Attach Compendium DO Not Attach Compendium, Do Not Delete/merge, 02/07/2022 09:46:30 02/07/19 23 02/07/2022 rapid SARS CoV + SARS CoV 2 Ag, QL IA, respi rator y speci men Gore Stitcher : Quidel Not Available In-Off ice Order Internal Use Only DO Not Attach Compendium DO Not Attach Compendium, Do Not Delete/merge, 02/07/2022 09:46:30 02/07/19 23 02/07/2022 rapid SARS CoV + SARS CoV 2 Ag, QL IA, respi rator y speci men Lot. # [id number] Not Available In-Office Order Internal Use Only DO Not Attach Compendium DO Not Attach Compendium, Do Not Delete/merge, 02/07/2022 09:46:30 02/07/19 23 02/07/2022 rapid SARS CoV + SARS CoV 2 Ag, QL IA, respi rator y speci men Expiration Date: Not Available In-Office Order Internal Use Only DO Not Attach Compendium DO Not Attach Compendium, Do Not Delete/merge, 02/07/2022 09:46:30 02/07/19 23 02/07/2022 rapid flu (A+B) Flu A negati ve Not Available In-Office Order Internal Use Only DO Not Attach Compendium DO Not Attach Compendium, Do Not Delete/merge, 02/07/2022 09:46:07 02/07/19 23 02/07/2022 rapid flu (A+B) Flu B negati ve Not Available In-Office Order Internal Use Only DO Not Attach Compendium DO Not Attach Compendium, Do Not Delete/merge, 02/07/2022 09:46:07 02/07/19 23 02/07/2022 rapid flu (A+B) Gore Stitcher : Nabeel Archer Not Available In-Office Order Internal Use Only DO Not Attach Compendium DO Not Attach Compendium, Do Not Delete/merge, 02/07/2022 09:46:07 02/07/1902/07/2022 rapid flu (A+B) Lot. # [id number] Not Available In-Office Order Internal Use Only DO Not Attach Compendium DO Not Attach Compendium, Do Not Delete/merge, 02/07/2022 09:46:07 02/07/1902/07/2022 rapid flu (A+B) Expiration Date: Not Available In-Office Order Internal Use Only DO Not Attach Compendium DO Not Attach Compendium, Do Not Delete/merge, 02/07/2022 09:46:07 Result Notes None recorded. Medical Equipment None Reported. Allergies No known drug allergies Medications Name Sig Start Date Stop Date Status Note LastModified by Organization Details LastModified Time fc2 female condom misc active Not Available Not Available Not Available promethazine-D M 6.25 mg-15 mg/5 mL oral syrup TAKE 5 ML BY MOUTH EVERY 4 TO 6 HOURS NEEDED active Not Available Not Available No t Available triamcinolone acetonide 0.1 % topical cream APPLY THIN COAT TO AFFECTED AREA TWICE A DAY active Not Available Not Available No t Available alprazolam 0.5 mg tablet TAKE 1 TABLET BY MOUTH EVERY DAY NEEDED *MUST FOLLOW UP WITH PSYCH MD FOR REFILL active Not Available Not Available No t Available propranolol 10 mg tablet TAKE 2 TABLETS BY MOUTH 3 TIMES A DAY NEEDED active Not Available Not Available No t Available montelukast 10 mg tablet active Not Available Not Available No t Available mirtazapine 15 mg tablet TAKE 1 TABLET BY MOUTH EVERY DAY AT NIGHT active Not Available Not Available No t Available triamcinolone acetonide 0.1 % lotion active Not Available Not Available Not Available norethindrone (contraceptive ) 0.35 mg tablet active Not Available Not Available Not Available cefdinir 300 mg capsule TAKE 1 CAPSULE BY MOUTH EVERY 12 HOURS FOR 10 DAYS active Not Available Not Available No t Available prazosin 2 mg capsule TAKE 1 CAPSULE BY MOUTH EVERYDAY AT BEDTIME active Not Available Not Available No t Available amoxicillin 875 mg-potassium clavulanate 125 mg tablet TAKE ONE TABLET BY MOUTH EVERY 12 HOURS FOR 10 DAYS active Not Available Not Available No t Available duloxetine 20 mg capsule,delaye d release TAKE 1 CAPSULE IN THE MORNING active Not Available Not Available No t Available duloxetine 30 mg capsule,delaye d release TAKE 1 CAPSULE BY MOUTH EVERY DAY active Not Available Not Available No t Available [facility] 100,000 unit/gram topical powder APPLY TO AFFECTED AREA TWICE A DAY active Not Available Not Available No t Available Latuda 40 mg tablet TAKE 1 TABLET BY MOUTH EVERY DAY active Not Available Not Available No t Available Michaelle 30 mg tablet active Not Available Not Available Not Available Latuda 20 mg tablet TAKE 1 TABLET BY MOUTH EVERY DAY AT DINNER FOR 30 DAYS active Not Available Not Available No t Available Simpesse 0.15 mg-30 mcg (84)/10 mcg(7) tablets,3 month dose pack active Not Available Not Available Not Available ID NOW COVID-19 Test Kit TEST DIRECTED TODAY active Not Available Not Available No t Available Vitals Date Recorded Body height Body mass index (BMI) Percentile per age and sex Body mass index (BMI) Body weight Body temperature Heart rate Respiratory rate Oxygen saturation Oxygen saturation in Arterial blood by Pulse oximetry Systolic blood pressure Diastolic blood pressure Provider Name and Address Organization Details Last Updated DateTime 3 170.18 cm 76 % 24.7 kg/m2 20707.5 9 g 98.8 [degF] 97 /min 16 /min 98 % 98 % 117 mm[Hg] 88 mm[Hg] [facility] 3 09:45:45 Social History None recorded. Functional Status None recorded. Mental Status None recorded. Family History Nothing Reported. Medical History No medical history recorded. Gynecological HistoryNo gynecological history recorded. Obstetrics History GPAL:G 0 P 0 0 0 0 Past Encounters Encounter ID Performer Location Encounter Start Date Encounter Closed Date Diagnosis/Indication Diagnosis SNOMED-CT Code Diagnosis ICD10 Code Diagnosis Note [id number] Macrina Powell PA-C [facility] [address] [address] 07/29/2021 10:14:32 07/30/2021 17:24:11 [id number] Macrina Powell PA-C [facility] [address] [address] 08/27/2021 10:51:36 08/29/2021 10:00:55 [id number] Macrina Powell PA-C [facility] [address] [address] 09/30/2021 10:34:37 10/01/2021 16:16:08 [id number] [facility] [address] [address] 01/11/2022 16:22:23 01/12/2022 13:39:21 [id number] FELIBERTO EDWARDS NP [facility] [address] [address] 02/07/2022 09:27:09 02/08/2022 10:33:17 Streptococcal sore throat 56422631 J02.0 [id number] [facility] [address] [address] 03/10/2022 10:53:25 03/10/2022 13:29:35 [id number] [facility] Cano [facility] [address] [address] 09/13/2022 15:10:39 09/14/2022 09:07:17 [id number] [facility] [address] [address] 10/15/2022 15:55:59 10/18/2022 19:52:34 Health Concerns Section Related Observation LastModified by Organization Detai ls LastModified Time None Recorded Concern Status LastModified by Organization Details LastModified Time None Recorded Advance Directives Directive None Recorded Payers Encounter Date Sequence Insurance Name Policy Number Policy Coffman Covered Member ID Coffman Member ID Guarantor Name 02/07/2022 1 [facility]: PPO [id number] Roberto Lee [id number] Sally Lee Notes Date Note Type Note Provider Name and Address Organization Details Recorded Time 02/07/2022 text/html Patient is a 22 year old female that presents to clinic with complaints of cough, hoarse-sounding voice, sinus congestion onset two days ago. She recently was on a vacation on a cruise ship and therefore exposed to many illnesses. She did an at home covid test which was negative. She denies any chest pain, shortness of breath, nausea, vomiting, diarrhea, abdominal pain. FELIBERTO EDWARDS, FOREIGN LEGAL CONSULTANT [address] [facility] [address], [place], [address], [facility] 02/07/2022 10:08:18 OBGyn Episode No OBEpisode recorded.
== END 2024-05-18 12:25 | disposition home or self-care (01) ==
PROVIDERS: PCP Internal Medicine; Visit Provider Internal Medicine
DX: R00.2 Palpitations (principal)
CPT/HCPCS: 93242; 93306

== ENCOUNTER 2024-05-24 12:56 | Outpatient (CLI) | payer OTHER, SELFPAY ==
--- NOTE | ~2024-05-24 | CT_ITS ---
EXAMINATION: CT sinus wo con DATE: 05/24/2024 13:19 INDICATION: Chronic maxillary sinusitis TECHNIQUE: Computed tomography (CT) of the paranasal sinuses was performed without intravenous contra st. The dose-length product was 420.49 mGy-cm. Automated exposure control and iterative reconstructio n technique were employed. COMPARISON: None FINDINGS: There is mucosal thickening of the left maxillary sinus. Remainder of the paranasal sinuses are pneumatized without significant mucosal thickening or mucoperiosteal reaction. No significant na jeovany septal deviation. Ostiomeatal units are patent. Mastoids are pneumatized. IMPRESSION: 1. Mild left maxillary sinus disease. Reviewed, dictated and finalized at location B.
== END 2024-05-24 12:57 | disposition home or self-care (01) ==
PROVIDERS: PCP Internal Medicine; Visit Provider Internal Medicine
DX: J32.0 Chronic maxillary sinusitis (principal); J30.2 Other seasonal allergic rhinitis; J34.89 Other specified disorders of nose and nasal sinuses; H69.90 Unspecified Eustachian tube disorder, unspecified ear; H90.3 Sensorineural hearing loss, bilateral
CPT/HCPCS: 70486

== ENCOUNTER 2024-06-19 11:49 | Outpatient (CLI) | payer OTHER, SELFPAY ==
--- OUTSIDE RECORDS SUMMARY | 2024-06-19 12:26 | XMS_ITS | Data Portability ---
Author Organization [facility], [facility] [place] [address] Assessment Encounter Date Assessment Date Assessment [...] DO Not Attach Compendium, Do Not Delete/merge, [id number] 3 10:03:26 rapid SARS CoV + SARS CoV 2 Ag, QL IA, respiratory specimen 2022 023 [email or web address] In-Office Order, Internal Use Only DO Not Attach Compendium DO Not Attach Compendium, Do Not Delete/merge, [id number] 3 10:03:26 rapid strep group A, throat 2022 023 [email or web address] In-Office Order, Internal Use Only DO Not Attach Compendium DO Not Attach Compendium, Do Not Delete/merge, [id number] 10:03:26 Referral None recorded. Procedures None recorded. Surgeries None recorded. Imaging None recorded. Medication Orders cefdinir 300 mg capsule 2022 023 [id number] [address] [place], [address], 10:03:29 promethazin e-DM 6.25 mg-15 mg/5 mL oral syrup 2022 023 [facility] #[facility], [address] [place], [address], 10:03:56 Patient TargetsNo targets recorded. Patient Instructions Encounter Date Encounter Id Patient Instructions Last Modified By Organization Details Last Modified Time 02/07/2022 [id number] strep throat: care instructions [email or web address] Not available [...] 02/07/1902/07/2022 rapid strep group A, throa t Pot Press Operator : Quidel Not Available In-Off ice Order Internal Use Only DO Not Attach Compendium DO Not Attach Compendium, Do Not Delete/merge, 02/07/2022 09:46:55 02/07/19 23 02/07/2022 rapid strep group A, throa t Lot. # [id number] Not Available In-Office Order Internal Use Only [...] QL IA, respi rator y speci men Pot Press Operator : Quidel Not Available In-Off ice Order Internal Use Only DO Not Attach Compendium DO Not Attach Compendium, Do Not Delete/merge, 02/07/2022 09:46:30 02/07/19 23 02/07/2022 rapid SARS CoV + SARS CoV 2 Ag, QL IA, respi rator y speci men Lot. # [id number] Not Available In-Office Order Internal Use Only [...] 09:46:07 02/07/19 23 02/07/2022 rapid flu (A+B) Pot Press Operator : Nabeel Archer Not Available In-Office Order Internal Use Only DO Not Attach Compendium DO Not Attach Compendium, Do Not Delete/merge, 02/07/2022 09:46:07 02/07/1902/07/2022 rapid flu (A+B) Lot. # [id number] Not Available In-Office Order Internal Use [...] Not Available Not Available No t Available [facility] 100,000 unit/gram topical powder APPLY [...] Recorded Body height Body mass index (BMI) [Percentile] Per age and sex Body mass index (BMI) Body weight Body temperature Heart rate Respiratory rate Oxygen saturation Oxygen saturation in Arterial blood by Pulse oximetry Systolic blood pressure Diastolic blood pressure Provider Name and Address Organization Details Last Updated DateTime 3 170.18 cm 76 % 24.7 kg/m2 67310.5 9 g 98.8 [degF] 97 /min 16 /min 98 % 98 % 117 mm[Hg] 88 mm[Hg] [facility] 3 09:45:45 Social History None recorded. Functional Status None recorded. Mental Status None recorded. Family History Nothing Reported. Medical History No medical history recorded. Gynecological HistoryNo gynecological history recorded. Obstetrics History GPAL:G 0 P 0 0 0 0 Past Encounters Encounter ID Performer Location Encounter Start Date Encounter Closed Date Diagnosis/Indication Diagnosis SNOMED-CT Code Diagnosis ICD10 Code Diagnosis Note [id number] Macrina Powell PA-C [facility] [address] [address] 07/29/2021 10:14:32 07/30/2021 17:24:11 [id number] Macrina Powell PA-C [facility] [address] [address] 08/27/2021 10:51:36 08/29/2021 10:00:55 [id number] Josafat Funes MD [facility] [address] [address] 09/30/2021 10:34:37 10/01/2021 16:16:08 [id number] [facility] [address] [address] 01/11/2022 16:22:23 01/12/2022 13:39:21 [id number] Juan Al MD [facility] [address] [address] 02/07/2022 09:27:09 02/08/2022 10:33:17 Streptococcal sore throat [id number] J02.0 [id number] [facility] [address] [address] 03/10/2022 10:53:25 03/10/2022 13:29:35 [id number] [facility] [address] [address] 09/13/2022 15:10:39 09/14/2022 09:07:17 [id number] [facility] [address] [address] 10/15/2022 15:55:59 10/18/2022 19:52:34 Health Concerns Section Related Observation LastModified by Organization Detai ls LastModified Time None Recorded Concern Status LastModified by Organization Details LastModified Time None Recorded Advance Directives Directive None Recorded Payers Insurance Date Sequence Insurance Name Policy Number Policy Coffman Covered Member ID Coffman Member ID Guarantor Name 10/20/2022 1 [facility]: PPO [id number] Roberto Lee [id number] Sally Lee Notes Date Note Type [...] nausea, vomiting, diarrhea, abdominal pain. FELIBERTO EDWARDS, ELECTRONICS ENGINEERING TECHNOLOGIST [address] [facility] [address], [place], [address], [facility] 02/07/2022 10:08:18 OBGyn Episode No OBEpisode recorded.
--- OUTSIDE RECORDS SUMMARY | 2024-06-19 12:26 | XMS_ITS | Data Portability ---
Author Organization [facility], [facility] Address [address] [place] [address] Care Team Providers Care Molasses Coloring Operator Name Role Phone BRITNEY BERRIOS Psychiatrist MATTHIEU GARBER Primary Care Provider [phone] Assessment Encounter Date Assessment Date Assessment LastModified by Organization Details LastModified Time 10/15/2022 10/15/2022 Telehealth communication performed with patient. Service was provided using telemedicine. Patient verbally consents to this services (virtual check-in). Names and roles of all persons participating in telemedicine services include: Patient is located at home and is an established patient. A total of _15-20__ minutes were spent in consultation via [email or web address] Telehealth video and audio to assess and treat the following: Not available 10/15/2022 16:28:59 Plan of Treatment Reminders Order Date Submit Date Provider Last Modified By Organization Details Last Modified Time Details Appointments None recorded. Lab TSH, serum or plasma 2022 023 [employer] [facility], [address] [place], [address], 4 12:10:42 erythrocyte sedimentati on rate by westergren method 2022 023 [employer] [facility], [address] [place], [address], 4 12:10:41 CMP, serum or plasma 2022 023 [employer] [facility], [address] [place], [address], 4 12:10:42 magnesium, serum or plasma 2022 023 [facility] DNP [employer] [facility], [address] [place], [address], 4 12:10:42 MARY (antinuclea r antibodies) screen, serum 2022 023 [facility] DNP [employer] [facility], [address] [place], [address], 4 12:10:42 magnesium, serum or plasma 2021 022 [facility], [address] [place], [address], 3 08:44:46 vitamin B12 + folate, serum or blood 2021 022 [facility], [address] [place], [address], 3 08:44:47 TSH, serum or plasma 2021 022 [facility], [address] [place] [address], [address], 3 08:44:47 T4, free, serum 2021 022 [facility], [address] [place], [address], 3 08:44:47 CBC w/ auto diff 2021 022 [facility], [address] [place], [address], 3 08:44:47 CMP, serum or plasma 2021 022 [facility], [address] [place], [address], 3 08:44:47 CT + NG RNA, PCR, unspecified specimen 2021 [place] [address] DNP [employer] [facility], [address] [place], [address], 3 08:44:45 trichomonas vaginalis RNA 2021 022 [place] [address] DNP [employer] [facility], [address] [place], [address], 3 08:44:45 HIV 1+2 Ab + HIV1 p24 Ag, quantitativ e immunoassay , serum 2021 [place] [address] DNP [employer] [facility], [address] [place], [address], 3 08:44:46 RPR (rapid plasma reagin), serum 2021 [place] [address] DNP [employer] [facility], [address] [place], [address], 3 08:44:46 hsv (1+2) igg, serum 2021 [place] [address] DNP [employer] [facility], [address] [place], [address], 3 08:44:46 hepatitis panel (A+B+C), acute, serum 2021 [place] [address] DNP [employer] [facility], [address] [place], [address], 3 08:44:46 Referral gynecologis t referral 2021 [email or web address] Aline Beltran MD, [address] [facility], [place], [address], 3 08:54:54 Procedures None recorded. Surgeries None recorded. Imaging None recorded. Medication Orders propranolol 10 mg tablet 2022 [email or web address] [place], [place] [address], [address] [place], [address], 3 12:35:26 Ubrelvy 100 mg tablet 2022 [address]23 [address] [place], [address], 3 16:02:26 Nurtec ODT 75 mg disintegrat ing tablet 2022 023 [address] [place], [address], 3 16:27:54 propranolol 10 mg tablet 2022 023 [facility] [address] [place], [address], 3 15:54:04 nystatin 100,000 unit/gram topical powder 2022 023 [facility] [address] [place], [address], 3 11:29:22 triamcinolo ne acetonide 0.1 % topical cream 2022 023 [facility] [address] [place], [address], 3 11:29:22 Vraylar 1.5 mg capsule 2021 022 [email or web address] Not available 3 15:34:09 Vraylar 3 mg capsule 2021 022 [email or web address] Not available 3 15:34:19 Patient TargetsNo targets recorded. Patient Instructions Encounter Date Encounter Id Patient Instructions Last Modified By Organization Details Last Modified Time 09/30/2021 [id number] post-traumatic stress disorder (PTSD): care instructions Not available 10/01/2021 08:24:21 controlling your asthma: care instructions Not available 10/01/2021 08:24:20 learning about asthma Not available 10/01/2021 08:24:21 learning about high blood sugar Not available 10/01/2021 08:24:20 headache: care instructions Not available 10/01/2021 08:24:21 anxiety disorder : care instructions Not available 10/01/2021 08:24:20 learning about mood disorders Not available 10/01/2021 08:24:21 01/11/2022 [id number] controlling your asthma: care instructions Not available 01/11/2022 17:27:27 learning about asthma Not available 01/11/2022 17:27:26 learning about high blood sugar Not available 01/11/2022 17:27:27 headache: care instructions Not available 01/11/2022 17:27:25 bulimia: care instructions Not available 01/11/2022 17:27:26 anxiety disorder : care instructions Not available 01/11/2022 17:27:27 learning about mood disorders Not available 01/11/2022 17:27:27 03/10/2022 [id number] headache: care instructions Not available 03/10/2022 11:29:19 controlling your asthma: care instructions Not available 03/10/2022 11:29:19 learning about asthma Not available 03/10/2022 11:29:19 learning about high blood sugar Not available 03/10/2022 11:29:19 anxiety disorder : care instructions Not available 03/10/2022 11:29:19 Eczema: Care Instructions Not available 03/10/2022 11:29:19 learning about mood disorders Not available 03/10/2022 11:29:19 09/13/2022 [id number] headache: care instructions Not available 09/13/2022 15:53:57 controlling your asthma: care instructions Not available 09/13/2022 15:53:57 learning about asthma Not available 09/13/2022 15:53:57 anxiety disorder : care instructions Not available 09/13/2022 15:53:57 learning about mood disorders Not available 09/13/2022 15:53:57 10/15/2022 [id number] controlling your asthma: care instructions Not available 10/15/2022 16:29:40 learning about asthma Not available 10/15/2022 16:29:40 headache: care instructions Not available 10/15/2022 16:29:40 anxiety disorder : care instructions Not available 10/15/2022 16:29:40 learning about mood disorders Not available 10/15/2022 16:29:40 Reason for Referral Manager Story Referral for Co ntraception care management Referring Physician: Erma Wharton, Family Medicine, Encounter Date: 01/11/2022 Problems Name Problem SNOMED Code Status Onset Date Resolution Date Notes Provider Name and Address Organization Details Recorded Time Asthma 419299148 Active 2021 Not Available [facility] 3 22:21:40 Anxiety 50030432 Active 2021 Not Available [facility] 3 22:21:41 Depressive disorder 62122222 Active 2021 Not Available [facility] 3 22:21:41 Attention deficit hyperactiv ity disorder 505367297 Active 2021 Not Available [facility] 3 22:21:41 Bipolar disorder 11361603 Active 2021 Not Available [facility] 3 22:21:40 Posttrauma tic stress disorder 59828666 Active 2021 Not Available [facility] 3 22:21:41 Headache 52391072 Active 2021 Not Available [facility] 3 22:21:41 Vitamin D deficiency 32138968 Active 2021 Not Available [facility] 3 22:21:41 Hyperglyce alice 20056602 Active 2021 Not Available [facility] 3 22:21:41 Generalize d anxiety disorder 80367841 Active 2021 Not Available [facility] 3 22:21:41 Severe major depression without psychotic features 59745137 Active 2021 Not Available [facility] 3 22:21:41 Borderline personalit y disorder 08932975 Active 2021 Not Available [facility] 3 22:21:40 Sleep terror disorder 79113518 Active 2021 Not Available [facility] 3 22:21:41 Fatigue 54491080 Active 2021 Not Available [facility] 3 22:21:41 Sleep disorder 11251123 Active 2021 Not Available [facility] 3 22:21:41 Nausea 279987306 Active 2021 Not Available [facility] 3 22:21:41 Mood disorder 03161301 Active 2021 Not Available [facility] 3 22:21:41 New daily persistent headache 9395751335380 05 Active 2022 [facility] [address] [place], [address] , [facility] 3 16:20:43 Migraine 38163830 Active 2022 [facility] [address] [place], [address] , [facility] 3 16:20:43 Notes:Some problems listed i n Document: #[id number] could not be added to this patient's chart. Please review this document and add these problems to the patient's chart manually as needed. Problem Notes None recorded. Procedures Surgical History Date Name Laterality Status Provider Name and Address Organization Details Recorded Time 10/16/19 Telehealth Communication completed Sylvia Paniagua CMA [facility] 10/15/2022 15:56:26 Imaging Results None recorded. Procedure [...] DAY NEEDED *MUST FOLLOW UP WITH PSYCH FOR REFILL 07/29 completed Not Available Not [...] completed Not Available Not Available Not Available [facility] 100,000 unit/gram topical powder APPLY TO AFFECTED [...] Not Available Not Available Not Avai lable Ciprianoc ODT 75 mg disintegrat ing tablet Take [...] 2 170.18 cm 90 % 28 kg/m2 62517.0 3 g 98 [degF] 80 /min 16 /min 98 % 98 % 100 mm[Hg] 70 mm[Hg] MARIEL Stanton [facility] 2 08:09:52 Date Recorded Body height Body mass index (BMI) [Percentile] Per age and sex Body weight Body temperature Heart rate Oxygen saturation Oxygen saturation in Arterial blood by Pulse oximetry Systolic blood pressure Diastolic blood pressure Provider Name and Address Organization Details Last Updated DateTime 2 170.18 cm 83 % 39879.3 3 g 97.8 [degF] 90 /min 99 % 99 % 116 mm[Hg] 62 mm[Hg] Rylee Butler [facility] 2 17:04:37 Date Recorded Body height Body mass index (BMI) Body mass index (BMI) [Percentile] Per age and sex Body weight Body temperature Respiratory rate Pain severity - 0-10 verbal numeric rating [Score] - Reported Heart rate Oxygen saturation Oxygen saturation in Arterial blood by Pulse oximetry Systolic blood pressure Diastolic blood pressure Provider Name and Address Organization Details Last Updated DateTime 3 170.18 cm 24.3 kg/m2 74 % 82105.8 2 g 97.6 [degF] 16 /min 0 99 /min 98 % 98 % 110 mm[Hg] 68 mm[Hg] Ramona Meza [facility] 3 11:04:11 Date Recorded Body height Body [...] DateTime 170.18 cm 53 % 22.1 kg/m2 12745.5 2 g 16 /min 4 98 % 98 % 97 /min 98.4 [degF] 110 mm[Hg] 70 mm[Hg] Sylvia Paniagua CMA [facility] 15:29:05 Date Recorded Body height Body mass index (BMI) Body mass index (BMI) [Percentile] Per age and sex Body weight Provider Name and Address Organization Details Last Updated DateTime 10/15/2022 170.18 cm 21.1 kg/m2 42 % 15533.97 g Sylvia Paniagua CMA [facility] 10/15/2022 15:57:44 Social History Question Answer Notes LastModified by [employer] Details LastModified Time Tobacco Smoking Status Never Smoker [facility] 10:52:56 Do You Have An Advance Directive? No Information not available 07/29/2021 Are You Blind Or Do You Have Difficulty Seeing? No Information not available 07/29/2021 Are You Deaf Or Do You Have Serious Difficulty Hearing? No Information not available 07/29/2021 What Type Of Diet Are You Following? REGULAR Information not available 07/29/2021 Do You Have A Medical Power Of Senior Pastor? No Information not available 07/29/2021 What Was The Date Of Your Most Recent Tobacco Screening? 10/15/2022 [email or web address] Information not available 10/15/2022 Sex: Unknown Functional Status Question Answer Note LastModified by Organizat ion Details LastModified Time Do you or have you ever used any other forms of tobacco or nicotine? Yes vape Information not available 07/29/2021 Do you have difficulty walking or climbing [...] N URINARY/BLADDER PROBLEMS N SKIN PROBLEMS N EMPHYSEMA N BLADDER OR KIDNEY PROBLEMS N DIABETES N Gerd N HIGH CHOLESTEROL N HEARTBURN / REFLUX N COPD N EYE PROBLEMS N HEPATITIS / LIVER DISEASE N PULMONARY DISEASE N SEIZURES N GOUT N BACK / NECK PROBLEMS N BOWEL PROBLEMS N DEPRESSION (INCLUDING POST ) Y THYROID DISEASE N DIZZINESS N KIDNEY DISEASE N EAR PROBLEMS N HYPERTENSION N HIV / AIDS N ADHD Y ANXIETY DISORDER Y Sleep apnea N ANEMIA/BLOOD DISORDER N HEART DISEASE N OSTEOPOROSIS N CANCER: TYPE N Gynecological History Statement/Question Response Duration of Flow (days) 5 Current Control Method IUD Date of LMP 06/21/2021 Obstetrics History GPAL:G 0 P 0 0 0 0 Immunizations Vaccine Type Date Status Note Provider Nam e and Address Organization Details Recorded Time COVID-19, mRNA, LNP-S, PF, 30 mcg/0.3 mL dose 07/24/2020 completed Not Available [facility] 3 22:21:41 COVID-19, mRNA, LNP-S, PF, 30 mcg/0.3 mL dose 08/22/2020 completed Not Available [facility] 3 22:21:41 Past Encounters Encounter ID Performer Location Encounter Start Date Encounter Closed Date Diagnosis/Indication Diagnosis SNOMED-CT Code Diagnosis ICD10 Code Diagnosis Note [id number] Matthieu Garber PA-C [facility] [address] [address] [place] [address] 07/29/2021 10:14:32 07/30/2021 17:24:11 Severe major depression without psychotic features 27372997 F32.2 Generalize d anxiety disorder 09033270 F41.1 Borderline personality disorder 99101986 F60.3 History of eating disorder 9988148734 15054 Z86.59 Sleep terror disorder 89 417191 F51.4 Sleep disorder 67660412 G47.9 Asthma 095336551 J45.90 9 Posttrauma tic stress disorder 08624126 F43.10 Screening for disorder 137942909 Z13.9 Vitamin D deficiency 347 08623 E55.9 Fatigue 70894051 R53.83 [id number] Matthieu Garber PA-C [facility] [address] [address] 08/27/2021 10:51:36 08/29/2021 10:00:55 Headache 45356672 R51.9 Likely secondary to inadequate hydration and nutritionW e will obtain magnesium levelCBC and CMP within normal limits excluding some hyperglyce alice though it is unclear whether patient was fasting Vitamin D deficiency 347 85746 E55.9 Vitamin D was not obtained despite order being placed Patient has agreed to complete these prior to her next follow-up Hyperglycemia 26196640 R 73.9 When obtaining magnesium vitamin D we will also screen for diabetes due to hyperglyce alice Asthma 272189068 J45.90 9 History of eating disorder 4993886434 03461 Z86.59 Followed by psychiatry and counseling Severe michael or depression without psychotic features 76152188 F32.2 Followed by psychiatry and counseling -Dr. Davenport es SI/HI Generalize d anxiety disorder 15911012 F41.1 Followed by psychiatry and counseling -Dr. Aguillon and T4 WNL Borderline personality disorder 63074539 F60.3 Followed by psychiatry and counseling -Dr. Berrios Posttrauma tic stress disorder 01746464 F43.10 Fatigue 81363804 R53.83 B12 low normal at 312- advised she begin daily dissovable tab or sublingual drop Nausea 211463501 R11.0 [id number] Josafat Funes MD [facility] [address] [address] 09/30/2021 10:34:37 10/01/2021 16:16:08 Headache 91556802 R51.9 Likely secondary to inadequate hydration, sleep, and nutrition Hyperglycemia 79927421 R 73.9 Patient agrees to complete labs ordered at previous visit Asthma 538289154 J45.90 9 History of eating disorder 6593054158 40684 Z86.59 Followed by psychiatry and counseling see hpi Severe michael or depression without psychotic features 34473547 F32.2 Followed by psychiatry and counseling -Dr. Villarreal hpi Generalize d anxiety disorder 29209178 F41.1 Followed by psychiatry and counseling -Dr. Villarreal HPI Borderline personality disorder 47529602 F60.3 Followed by psychiatry and counseling -Dr. Berrios Posttrauma tic stress disorder 96516227 F43.10 per patient Mood disorder 67988727 F 39 Suspected diagnosis of bipolarPat ient will restart Vraylar as she had success with this in the past.Josette nue Vipul and till she sees Dr. Berrios on Tuesday where he can create further care plan.admit s to SI though reports no plan- SEE HPI Sleep disorder 75349925 G47.9 Advised patient to discuss with Dr. Berrios [id number] [facility] [address] [address] 01/11/2022 16:22:23 01/12/2022 13:39:21 Bulimia nervosa 73122382 F50.2 Mood disorder 83722225 F 39 Patient has stopped all psych medication but states that mood has been stable.She continues to see psychologi st for counseling .Denies any SI/HI Headache 07539334 R51.9 Likely secondary to inadequate h [id number]|2024-06-19 12:26:00|2024-06-19 12:26:00|XMS_ITS|BKG DAEMON|External Medical Summaries|[id number]|" Patient Health Record Created on: June 19, 2024 Sally Lee : 2000 Sex: Female Author Organization [facility] [place] ([address]) Address [address] [place] [address] Care Team Providers Care Molasses Coloring Operator Name Role Phone Robyn Gallardo Unavailable [phone] Eli Del Angel Unavailable Unavailab le [employer], [...] (in the evening) for 30 day(s) Active 02/26 WITH IRON 20 MCG-1 MG TK 1 T PO DAILY DIRECTED for 28 *Please review and pick correct strength-formulat ion from [employer] options. If intended option is not shown, discontinue and re-order from Quick Search* Active Singulair 10 MG 1 tab(s) orally once a day for 30 day(s) Active Eucrisa 2 % 1 hemal applied topically 2 times a day Active TRIAMCINOLONE ACETONIDE TOPICAL 0.1% 1 hemal applied topically 3 times a day for 30 day(s) Active Triamcinolone Acetonide 0.1 % 1 hemal applied topically 3 times a day for 30 day(s) Active EUCRISA 2% 1 hemal applied topically 2 times a [...] for e-prescription and drug interaction check* Active 20 with iron 20 mcg-1 mg TK 1 T PO DAILY DIRECTED for 28 Active VANICREAM LITE LOTION - 1 HEMAL APPLIED TOPICALLY 2 TIMES A DAY for [...] HEMAL APPLIED TOPICALLY 2 TIMES A DAY for [...] Status Risk Notes Problem Chronic allergic conjunctivitis (52091783) Other chronic allergic conjunctivitis (H10.45) Active confirmed Problem Allergic rhinitis (01686523) Other allergic rhinitis (J30.89) Active confirmed Problem Cough (14663342) Cough (R05) Active confirmed Problem Atopic dermatitis (08600520) Atopic dermatitis, unspecified (L20.9) Active confirmed Encounters Encounter Location Date Provider Diagnosis [facility] - [address] [address] 07/23/2023 Provider KARAN-Rosalina Atopic dermatitis, unspecified L20.9 [...] Insured Coverage Start Date Coverage End Date [facility] [id number] [place] [address] [id number] Roberto Lee Child - Insured has Financial Responsibility Medical (General) History Medical History History ICD Code Dysthymic disorder Attention-deficit hyperactivity disorder , unspecified type Dermatitis, unspecified Surgical History Surgery Date(Month/Year) "
--- OUTSIDE RECORDS SUMMARY | 2024-06-19 12:26 | XMS_ITS ---
Author Organization [facility] [place] ([address]) Address [address] [place] [address] Care Team Providers Care Cloth Bale Header Name Role Phone PaulinaRobyn evans Unavailable [phone] Eli Del Angel Unavailable Unavailab le [employer], [...] review and pick correct strength-formulat ion from [employer] options. If intended option is not shown, discontinue and re-order from Quick Search* Active Singulair 10 MG 1 tab(s) orally once a day for 30 day(s) Active Eucrisa 2 % 1 chidi applied topically 2 times a day Active PROzac 40 MG 1 cap(s) orally once a day for 30 day(s) Active Encounters Encounter Location Date Provider Diagnosis [address] [address] 07/23/2023 Provider Walter Atopic dermatitis, unspecified L20.9 [...] * Sumeet SCHMIDTOB: 002 (24 yo F)Acc No.[id number]:07/23/2023 Patient: Sally WEEKS Provider: Ronald Romano :2000 A ge:23 Y S ex:Female Date:07/23/2023 Address:[address] [place], [place] [id number] Subjective: * Chief Complaints: * 1 . Multum To Medispan Conversion Encounter. * Medical History: * Medications: T aking Junel FE 02/26 WITH IRON 20 MCG-1 MG TABLET TK 1 T PO DAILY DIRECTED , Notes to Pharmacist: *Please review and pick correct strength-formulation from [facility] options. If intended option is not shown, [...] once a day (in the evening), 30 day(s). * Billing Information: * Visit Code: * Procedure Codes: * Electronic signature of Bear RUSSO-Migration on 06/19/2024 at 12:25 PM CDT Sign off status: Pending * Provider: Ronald davis Migration Date: 0 07/23/2023 Generated for Aniyah santacruz/Pawan/Reyes on: 0 06/19/2024 12:25 PM CDT
[2024-06-19 13:20] LABS: Hematocrit 42.6 % (37.0-47.0); Hemoglobin 14.2 g/dL (12.0-15.0); Mean Corpuscular HGB Conc 33.3 g/dl (32-36); Mean Corpuscular Hemoglobin 30.6 pg (26-34); Mean Corpuscular Volume 91.8 fl (80-100); Mean Platelet Volume 9.5 fl (7.4-10.4); Platelet Count Result 294 k/mm3 (150-375); Red Blood Count 4.64 M/mm3 (4.2-5.4); Red Cell Distribution Width 12.2 % (11.5-14.5); White Blood Count 7.3 K/mm3 (4.5-10.0)
[2024-06-19 14:02] LABS: Erythrocyte Sedimentation Rate 16 mm/hr (0-20)
[2024-06-19 14:06] LABS: Free T4 Free Thyroxine 1.02 ng/dL (0.78-2.19); Vitamin D 25 Hydroxy 51.7 ng/mL
[2024-06-19 14:42] LABS: Immunoglobulin G 1206 mg/dL (700-1600); Immunoglobulin M 103 mg/dL (40-230)
[2024-06-19 15:03] LABS: Alanine Aminotransferase 18 U/L (6-35); Albumin Level 4.6 g/dL (3.5-5.1); Alkaline Phosphatase 55 U/L (38-126); Anion Gap 11 mmol/L (4-12); Aspartate Amino Transferase 25 U/L (14-36); Bilirubin,Total 0.4 mg/dL (0.2-1.3); Blood Urea Nitrogen 11 mg/dL (7-17); CRP < 0.5 mg/dL (<1.0); Calcium 9.4 mg/dL (8.4-10.2); Carbon Dioxide 24 mmol/L (22-30); Chloride 106 mmol/L (98-107); Estimated Glomerular Filt Rate > 60; Glucose 77 mg/dL (65-110); Potassium 4.2 mmol/L (3.4-5.0); Sodium 141 mmol/L (137-145)
[2024-06-19 15:31] LABS: Thyroid Stimulating Hormone 0.564 uIU/mL (0.465-4.680); Total Triiodothyronine (T3) 1.61 NG/ML (0.97-1.69)
[2024-06-21 03:43] LABS: EBV Virus Capsid Ag IgM Ab <36.00 U/mL
[2024-06-21 15:03] LABS: Lyme Disease Ab (IgM), Blot NEGATIVE (NEGATIVE); Lyme Disease Ab(IgG), Blot NEGATIVE (NEGATIVE)
== END 2024-06-19 11:50 | disposition home or self-care (01) ==
PROVIDERS: PCP Internal Medicine; Visit Provider Internal Medicine
DX: L20.89 Other atopic dermatitis (principal); R53.83 Other fatigue; Z79.899 Other long term (current) drug therapy
CPT/HCPCS: 36415; 80053; 82306; 82784; 84439; 84443; 84480; 85027; 85652; 86038; 86039; 86140; 86617; 86664; 86665

== ENCOUNTER 2024-06-19 12:25 | Outpatient (CLI) | payer OTHER, SELFPAY ==
[2024-06-19 13:32] LABS: Cholesterol 188 mg/dL (0-200); HDL Direct 54 mg/dL; Triglycerides 102 mg/dL (<150)
[2024-06-19 13:42] LABS: LDL Cholesterol Direct 98 mg/dL
[2024-06-19 14:21] LABS: Hepatitis B Surface Antigen Negative (Negative)
[2024-06-19 14:27] LABS: Hepatitis B Core IgM Result Negative (Negative)
[2024-06-19 15:54] LABS: Hepatitis B Surface Anti Res Indeterminate; Hepatitis C Virus Antibody Negative (Negative)
[2024-06-21 16:32] LABS: NIL 0.01 IU/mL; Quantiferon TB Plus, 1T NEGATIVE (NEGATIVE)
[2024-06-22 12:58] LABS: Hepatitis B DNA PCR NOT DETECTED (NOT DETECTED); Hepatitis B DNA PCR NOT DETECTED Log IU/mL (NOT DETECTED)
== END 2024-06-19 12:26 | disposition home or self-care (01) ==
PROVIDERS: PCP Internal Medicine
DX: L20.9 Atopic dermatitis, unspecified (principal)
CPT/HCPCS: 36415; 80053; 80061; 82306; 82784; 84439; 84443; 84480; 85027; 85652; 86038; 86039; 86140; 86480; 86617; 86664; 86665; 86705; 86706; 86803; 87340; 87517

== ENCOUNTER 2024-12-11 09:23 | Emergency (ER) | payer OTHER, SELFPAY ==
--- OUTSIDE RECORDS SUMMARY | 2023-07-23 15:30 | XMS_ITS ---
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 Name Role Phone PaulinaRobyn evans Unavailable [phone] Eli Del Angel Unavailable Unavailab le ZZ-Migration, Provider Unavailable Unavailab le REASON FOR VISIT Multum To Medispan Conversion Encounter Medications Medication SIG (Take, Route, Frequency, Duration) Notes Start Date End Date Status VANICREAM FREE & CLEAR CONDITIONER N/A WORK INTO HAIR, ALLOW TO REMAIN 1-3 MINUTES, RINSE THOROUGHLY WITH WARM WATER (AVOID EYES) TOPICALLY QDAY; Duration: 30 DAY(S) *Please review for potential replacement for e-prescription and drug interaction check* Active VANICREAM FREE & CLEAR SHAMPOO N/A WET HAIR, APPLY, LATHER AND THEN RINSE (AVOID EYES) TOPICALLY QDAY; Duration: 30 DAY(S) *Please review for potential replacement for e-prescription and drug interaction check* Active VANICREAM LITE LOTION - 1 HEMAL APPLIED TOPICALLY 2 TIMES A DAY; Duration: 30 DAY(S) *Please review for potential replacement for e-prescription and drug interaction check* Active Xyzal Allergy 24HR 5 MG 1 tab(s) orally once a day (in the evening); Duration: 30 day(s) Active Triamcinolone Acetonide 0.1 % 1 hemal applied topically 3 times a day; Duration: 30 day(s) Active PROAIR HFA 90 MCG/INH 2 PUFF(S) INHALED 4 TIMES A DAY; Duration: 30 DAY(S) *Please review for potential replacement for e-prescription and drug interaction check* Active Xyzal Allergy 24HR 5 MG 1 tablet PO daily; Duration: 30 Active ZyrTEC Allergy 10 MG 1 tab(s) orally once a day Not-Taking VANICREAM CLEANSING BAR - 1 HEMAL APPLIED TOPICALLY 2 TIMES A DAY; Duration: 30 DAY(S) *Please review for potential replacement for e-prescription and drug interaction check* Active Adderall XR 25 MG 1 cap(s) orally once a day (in the morning); Duration: 30 day(s) Active FLUoxetine HCl 40 MG 1 cap(s) orally once a day; Duration: 30 day(s) Active Junel FE 02/26 WITH IRON 20 MCG-1 MG TK 1 T PO DAILY DIRECTED; Duration: 28 *Please review and pick correct strength-formulat ion from [employer] options. If intended option is not shown, discontinue and re-order from Quick Search* Active Singulair 10 MG 1 tab(s) orally once a day; Duration: 30 day(s) Active Eucrisa 2 % 1 hemal applied topically 2 times a day Active PROzac 40 MG 1 cap(s) orally once a day; Duration: 30 day(s) Active Encounters Encounter Location Date Provider Diagnosis [address] [address] 07/23/2023 Provider KARAN-Rosalina Atopic dermatitis, unspecified L20.9 and Other allergic rhinitis J30.89 Assessments Encounter Date Diagnosis (ICD Code) Assessment Notes Treatment Notes Treatment Clinical Notes Section Notes 07/23/2023 Atopic dermatitis, unspecified (ICD-10 - L20.9) 07/23/2023 Other allergic rhinitis (ICD-10 - J30.89) Plan Of Treatment Medication Medication Name Sig Start Date Stop Date Notes Xyzal Allergy 24HR 5 MG 1 tab(s) orally once a day (in the evening); Duration: 30 day(s) Triamcinolone Acetonide 0.1 % 1 hemal appl ied topically 3 times a day; Duration: 30 day(s) Progress Notes * Estuardo SCHMIDTineDOB: [birth year] (24 yo F)Acc No.[id number]:07/23/2023 Patient: Sally WEEKS Provider: Ronald davis Migration :2000 A ge:23 Y S ex:Female Date:07/23/2023 Address:[address] [facility] Subjective: * Chief Complaints: * 1 . Multum To Medispan Conversion Encounter. * Medical History: * Medications: T aking Junel FE 02/26 WITH IRON 20 MCG-1 MG TABLET TK 1 T PO DAILY DIRECTED , Notes to Pharmacist: *Please review and pick [facility]. If intended option is not shown, discontinue and re-order from Quick Search*, Taking Singulair 10 MG Tablet 1 tab(s) orally once a day , Taking Eucrisa 2 % Ointment 1 hemal applied topically 2 times a day , Taking FLUoxetine HCl 40 MG Capsule 1 cap(s) orally once a day , Taking PROzac 40 MG Capsule 1 cap(s) orally once a day , Taking Adderall XR 25 MG Capsule Extended Release 24 Hour 1 cap(s) orally once a day (in the morning) , Taking PROAIR HFA 90 MCG/INH AEROSOL 2 PUFF(S) INHALED 4 TIMES A DAY , Notes to Pharmacist: *Please review for potential replacement for e-prescription and drug interaction check*, Taking Xyzal Allergy 24HR 5 MG Tablet 1 tablet PO daily , Taking VANICREAM CLEANSING BAR - SOAP 1 HEMAL APPLIED TOPICALLY 2 TIMES A DAY , Notes to Pharmacist: *Please review for potential replacement for e-prescription and drug interaction check*, Taking VANICREAM FREE & CLEAR CONDITIONER N/A CONDITIONER WORK INTO HAIR, ALLOW TO REMAIN 1-3 MINUTES, RINSE THOROUGHLY WITH WARM WATER (AVOID EYES) TOPICALLY QDAY , Notes to Pharmacist: *Please review for potential replacement for e-prescription and drug interaction check*, Taking VANICREAM FREE & CLEAR SHAMPOO N/A SHAMPOO WET HAIR, APPLY, LATHER AND THEN RINSE (AVOID EYES) TOPICALLY QDAY , Notes to Pharmacist: *Please review for potential replacement for e-prescription and drug interaction check*, Taking VANICREAM LITE LOTION - LOTION 1 HEMAL APPLIED TOPICALLY 2 TIMES A DAY , Notes to Pharmacist: *Please review for potential replacement for e-prescription and drug interaction check*, Not-Taking/PRN ZyrTEC Allergy 10 MG Tablet 1 tab(s) orally once a day Objective: * Vitals: Assessment: * Assessment: 1. A topic dermatitis, unspecified - L20.9 (Primary) 2 . O ther allergic rhinitis - J30.89 Plan: * Treatment: 2. O ther allergic rhinitis Continue Xyzal Allergy 24HR Tablet, 5 MG, 1 tab(s), orally, once a day (in the evening), 30 day(s).? * Billing Information: * Visit Code: * Procedure Codes: * Electronic signature of Bear RUSSO-Migration on 12/11/2024 at 10:28 AM [employer] Sign off status: Pending * Provider: Ronald davis Migration Date: 0 07/23/2023 Generated for Aniyah santacruz/Pawan/Mary Joitting on: 1 02/11/2024 10:28 AM [employer]
--- OUTSIDE RECORDS SUMMARY | 2024-10-29 10:30 | XMS_ITS ---
Author Organization [facility] [employer] [facility] Address [facility] [address] [facility] [address] [place] [address] Care Team Providers Care Landscape Architect Name Role Phone Omkar FREDERICK, Juan Primary Care Provider Elisa Salmon [phone] REASON FOR VISIT Pt is sick Social History Sex Assigned At : Social History Observation Description Sex Assigned At Female Encounters Encounter Location Date Provider Diagnosis [facility] [employer] [address] [address] 10/29/2024 Elisa Johnston Plan Of Treatment Next Appt Details Provider Name:Elsia hamilton, 12/21/2024 11:30:00 AM, [facility], [address] [address], [place], [address], Progress Notes * BALA SCHMIDTOB: [birth year] (24 yo F)Acc No.[id number]:10/29/2024 Patient: SABRINA WEEKSINE Provider: LISA CASON :2000 A ge:24 Y S ex:Female Date:10/29/2024 Phone: Address:[facility] Pcp:Juan Espitia MD Subjective: * Chief Complaints: * P t is sick Billing Information: * Procedure Codes: * Electronic signature of LISA Hargrove on 12/11/2024 at 10:28 AM TAILERCPA Sign off status: Pending * Provider: LISA CASON Date: 0 10/29/2024 Generated for Printi ng/Fafabiang/eTransmitting on: 1 02/11/2024 10:28 AM TAILERCPA
[2024-12-11 09:41] VITALS: BP 137/77; PULSE 84; RESP 18; TEMP 36.6; O2SAT 100
--- OUTSIDE RECORDS SUMMARY | 2024-12-11 10:29 | XMS_ITS | Patient Health Record ---
Author Organization Formerly [facility] [place] ([address]) Address [address] [place] [address] Care Team Providers Care Personal Banking Representative Name Role Phone Robyn Gallardo Unavailable [phone] Juaquin SAUNDERSEli Unavailable Unavailab le Reason For Referral No Information Medications Medication SIG (Take, Route, Frequency, Duration) Notes Start Date End Date Status FLUoxetine HCl 40 MG 1 cap(s) orally once a day; Duration: 30 day(s) Active ZYRTEC 10 mg 1 tab(s) orally once a day Not-Taking XYZAL 5 mg 1 tab(s) orally once a day (in the evening); Duration: 30 day(s) Active Junel FE 02/26 WITH IRON 20 MCG-1 MG TK 1 T PO DAILY DIRECTED; Duration: 28 *Please review and pick correct strength-formulat ion from [employer] options. If intended option is not shown, discontinue and re-order from Quick Search* Active Singulair 10 MG 1 tab(s) orally once a day; Duration: 30 day(s) Active Eucrisa 2 % 1 chidi applied topically 2 times a day Active TRIAMCINOLONE ACETONIDE TOPICAL 0.1% 1 chidi applied topically 3 times a day; Duration: 30 day(s) Active Triamcinolone Acetonide 0.1 % 1 chidi applied topically 3 times a day; Duration: 30 day(s) Active EUCRISA 2% 1 chidi applied topically 2 times a day Active VANICREAM FREE & CLEAR CONDITIONER N/A WORK INTO HAIR, ALLOW TO REMAIN 1-3 MINUTES, RINSE THOROUGHLY WITH WARM WATER (AVOID EYES) TOPICALLY QDAY; Duration: 30 DAY(S) *Please review for potential replacement for e-prescription and drug interaction check* Active SINGULAIR 10 mg 1 tab(s) orally once a day; Duration: 30 day(s) Active VANICREAM FREE & CLEAR SHAMPOO N/A WET HAIR, APPLY, LATHER AND THEN RINSE (AVOID EYES) TOPICALLY QDAY; Duration: 30 DAY(S) *Please review for potential replacement for e-prescription and drug interaction check* Active JUNEL FE 02/26 with iron 20 mcg-1 mg TK 1 T PO DAILY DIRECTED; Duration: 28 Active VANICREAM LITE LOTION - 1 CHIDI APPLIED TOPICALLY 2 TIMES A DAY; Duration: 30 DAY(S) *Please review for potential replacement for e-prescription and drug interaction check* Active Xyzal Allergy 24HR 5 MG 1 tab(s) orally once a day (in the evening); Duration: 30 day(s) Active ADDERALL XR 25 mg 1 cap(s) orally once a day (in the morning); Duration: 30 day(s) Active PROZAC 40 mg 1 cap(s) orally once a day; Duration: 30 day(s) Active FLUOXETINE 40 mg 1 cap(s) orally once a day; Duration: 30 day(s) Active XYZAL 5 mg 1 tablet PO daily; Duration: 30 Active PROAIR HFA 90 MCG/INH 2 PUFF(S) INHALED 4 TIMES A DAY; Duration: 30 DAY(S) *Please review for potential replacement for e-prescription and drug interaction check* Active Xyzal Allergy 24HR 5 MG 1 tablet PO daily; Duration: 30 Active ZyrTEC Allergy 10 MG 1 tab(s) orally once a day Not-Taking VANICREAM CLEANSING BAR - 1 CHIDI APPLIED TOPICALLY 2 TIMES A DAY; Duration: 30 DAY(S) *Please review for potential replacement for e-prescription and drug interaction check* Active PROzac 40 MG 1 cap(s) orally once a day; Duration: 30 day(s) Active Adderall XR 25 MG 1 cap(s) orally once a day (in the morning); Duration: 30 day(s) Active Immunizations Vaccine Route Administration Date Status Comme nts DTaP < 7 y/o Unknown 01/25/2006 Administered Portal Inf ormation Hepatitis B (11-19) Unknown 2002 Administered Por adonis Information NOC PedvaxHIB Unknown 05/22/2003 Administered Portal In formation NOC Tdap Unknown 03/13/2013 Administered Portal Infor mation Influenza Unknown 10/27/2017 Administered Portal Infor mation Social History Tobacco Use: Social History Observation Description Date Details (start date - stop date) Never Smoker NA - NA Smoking Smart Form: Question Answer Notes Are you a: never smoker Problems Problem Type SNOMED Code ICD Code Onset Dates Problem Status W/U Status Risk Notes Problem Chronic allergic conjunctivitis (20759740) Other chronic allergic conjunctivitis (H10.45) Active confirmed Problem Allergic rhinitis (34378170) Other allergic rhinitis (J30.89) Active confirmed Problem Cough (74717432) Cough (R05) Active confirmed Problem Atopic dermatitis (53868921) Atopic dermatitis, unspecified (L20.9) Active confirmed Plan Of Treatment No Information Insurance Providers Payer Name Payer Address Payer Phone Subscriber Number Group Number Insured Name Patient Relationship to Insured Coverage Start Date Coverage End Date [facility] [id number] [place] [address] [id number] [employer] Lee Child - Insured has Financial Responsibility Medical (General) History Medical History History ICD Code Dysthymic disorder Attention-deficit hyperactivity disorder , unspecified type Dermatitis, unspecified Surgical History Surgery Date(Month/Year)
--- OUTSIDE RECORDS SUMMARY | 2024-12-11 10:29 | XMS_ITS | Patient Health Record ---
Author Organization [facility] Address [address] [place] [address] Care Team Providers Care Plasterer Spot Name Role Phone Juan Espitia MD Primary Care Provider Unavaila Elisa Huitron Unavailable [phone] Radha Gerard Unavailable [phone] Justyn Carty Unavailable [phone] Allergies No Known Allergies Results Component Value Reference Range Flag Notes UDT Reviewed date:05/22/2024 04:58:57 PM Interpretation: Performing Lab: Notes/Report: Amphetamine (AMP) N 0 - 1000 ng/ml Buprenorphine (BUP) N 0 - 10 ng/ml Oxazepam (BZO) P 0 - 300 ng/ml Cocaine (FRIDA) N 0 - 300 ng/ml Methamphetamine (mAMP) N 0 - 300 ng/ml Methylenedioxymethamphetamin e (MDMA) N 0 - 500 ng/ml Morphine (MOP) N 0 - 25 ng/ml Methadone (MTD) N 0 - 300 ng/ml Oxycodone (OXY) N 0 - 300 ng/ml THC P 0 - 50 ng/ml x N 0 - 1000 ng/ml x N 0 - 1000 ng/ml x N 0 - 300 ng/ml x N 0 - 300 ng/ml DRUG MONITOR, BENZO, QN, URI NE ([id number]) Reviewed date:05/29/2024 04:10:04 PM Interpretation: Performing Lab:CB, [facility] [address], [id number] Yefri Ariza Notes/Report: FASTING: UNKNOWN Alphahydroxyalprazolam 552 <25 ng/mL H Alphahydroxymidazolam NEGATIVE <50 ng/mL Alphahydroxytriazolam NEGATIVE <50 ng/mL Aminoclonazepam NEGATIVE <25 ng/mL Hydroxyethylflurazepam NEGATIVE <50 ng/mL Lorazepam NEGATIVE <50 ng/mL Nordiazepam NEGATIVE <50 ng/mL Oxazepam NEGATIVE <50 ng/mL Temazepam NEGATIVE <50 ng/mL Benzodiazepines Comments See Benzodiazepines Notes, LDT Notes DRUG MONITOR, MARIJUANA META B, QN, URINE ([id number]) Reviewed date:05/29/2024 04:09:52 PM Interpretation: Performing Lab:MICHAEL, [facility] [facility], [id number] Yefri Ariza, Director - [id number] [address] [facility] Notes/Report: FASTING: UNKNOWN Marijuana Metabolite 1387 <5 ng/mL H Marijuana Comments See Ma basilio Notes, LDT Notes Notes and Comments This drug testing is for medical treatment only. Analysis was performed as non-forensic testing and these results should be used only by healthcare providers to render diagnosis or treatment, or to monitor progress of medical conditions. Benzodiazepines Notes: aOH Alprazolam detected is consistent with the use of the drug Alprazolam. Marijuana Notes: Marijuana Metabolite detected is consistent with exposure to Marijuana (THC) and/or hemp derived products. Some jurisdictions do not include hemp within the definition of Marijuana. LDT Notes: Confirmation tests were developed and their analytical performance characteristics have been determined by [facility]. It has not been cleared or approved by the FDA. This assay has been validated pursuant to the CLIA regulations and is used for clinical purposes. Healthcare Providers needing Interpretation assistance, please contact us at [phone] ( ) M-F, 8am to 10pm EST Reason For Referral No Information Medications Medication SIG (Take, Route, Frequency, Duration) Notes Start Date End Date Status Doxepin HCl 3 MG Tablet 1 tablet at bedt maik Orally Once a day; Duration: 30 days 08/21/2024 Active Metoclopramide HCl 5 MG Tablet 1 tablet before meals Orally 3 times a day Active Spironolactone 100 MG Tablet TAKE 1 TABLET BY MOUTH DAILY Oral; Duration: 90 Days Active Estarylla 0.25-35 MG-MCG Tablet TAKE 1 TABLET BY MOUTH EVERY DAY CONTINUOUSLY Oral; Duration: 21 Days Active Biotin 5 MG Capsule 1 capsule Orally Onc e a day Active Rinvoq 15 MG Tablet Extended Release 24 Hour Oral; Duration: 30 Days 08/19/2024 Active Melatonin 10 MG Tablet as directed Orally Active Multivitamin Active Magnesium Oxide Acti ve CalmAid 80 MG Capsule as directed Orally Active Pantoprazole Sodium 40 MG Tablet Delayed Release Oral; Duration: 30 Days Active Trintellix 20 MG Tablet 1 tablet Orally Once a day; Duration: 30 days 11/08/2024 Active hydrOXYzine HCl 50 MG Tablet 1 tablet as needed Oral 3 times a day; Duration: 30 days 11/08/2024 Active QUEtiapine Fumarate ER 150 MG Tablet Extended Release 24 Hour 1 tablet in the evening Orally once a day; Duration: 30 days 11/08/2024 Active Social History Tobacco Use: Social History Observation Description Date Details (start date - stop date) Unknown Sex Assigned At : Social History Observation Description Sex Assigned At Female Social History Miscellaneous: Social Info Question Answer Notes Safety issues: Are there any firearms in the house? No Social History Social Info Question Answer Notes Household: Marital Status: Single Number of Adults in household: 5 Level of Education: Not Finished College Drug/Alcohol: Social Info Question Answer Notes Drugs Have you used drugs other than those for medical reasons in the past 12 months? Yes Methamphetamine? No Crack? No LSD? No Ecstacy? No Prescription opiates? No Marijuana? Yes Ketamine? No PCP? No Is there a minor (18 years or younger) at risk at home? No Are you still using? Yes Do you want treatment? No AUDIT-C (Standard) Did you have a drink containi ng alcohol in the past year? Yes How often did you have a drink containing alcohol in the past year? Monthly or less (1 point) How many drinks did you have on a typical day when you were drinking in the past year? 3 or 4 drinks (1 point) How often did you have six or more drinks on one occasion in the past year? 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 Problems Problem Type SNOMED Code ICD Code Onset Dates Problem Status W/U Status Risk Notes Problem Borderline personality disorder () Borderline personality disorder (F60.3) Active confirmed Problem Screening for cardiovascular system disease (385833811) Encounter for screening for cardiovascular disorders (Z13.6) Active confirmed Problem Depression Screening (104714836) Encounter for screening for depression (Z13.31) Active confirmed Problem Generalized anxiety disorder (20778828) NATE (generalized anxiety disorder) (F41.1) Active confirmed Problem Severe recurrent major depression without psychotic features (32868163) Severe episode of recurrent major depressive disorder, without psychotic features (F33.2) Active confirmed Problem Moderate recurrent major depression (09910143) MDD (major depressive disorder), recurrent episode, moderate (F33.1) Active confirmed Problem Nondependent cannabis abuse (216327614) Marijuana use (F12.90) Active confirmed Problem Insomnia disorder related to another mental disorder (70826483) Psychophysiological insomnia (F51.04) Active confirmed Vital Signs Heart Rate 106 /min 11/08/2024 Height-cm 167.64 cm 11/08/2024 Blood pressure diastolic 73 mm Hg 11/08/2024 Weight-kg 65.77 kg 11/08/2024 Height 66 in 11/08/2024 Blood pressure systolic 114 mm Hg 11/08/2024 Weight 145 lbs 11/08/2024 BMI 23.4 kg/m2 11/08/2024 Encounters Encounter Location Date Provider Diagnosis [facility] [address] 05/22/2024 Justyn Clubb Borderline personali ty disorder F60.3 ; NATE (generalized anxiety disorder) F41.1 ; Marijuana use F12.90 ; Encounter for screening for depression Z13.31 ; Encounter for screening for cardiovascular disorders Z13.6 and Nicotine use Z72.0 [facility], [facility] [place] [address] 06/05/2024 Justyn Clubb NATE (generalized anx iety disorder) F41.1 ; Marijuana use F12.90 ; Encounter for screening for depression Z13.31 ; Borderline personality disorder F60.3 and Encounter for screening for cardiovascular disorders Z13.6 [facility] [address] [place] [address] 06/12/2024 Radha Gerard Generalized anxiety disorder F41.1 [facility], [facility] [address] [place] [address] 06/19/2024 Radha Hinderliter Generalized anxiety disorder F41.1 [facility], [address] [place] [address] 06/19/2024 Justyn Clubb Borderline personali ty disorder F60.3 ; Severe episode of recurrent major depressive disorder, without psychotic features F33.2 ; NATE (generalized anxiety disorder) F41.1 ; Marijuana use F12.90 ; History of anorexia nervosa Z86.59 and Encounter for screening for depression Z13.31 [facility], [facility] [address] [place] [address] 07/03/2024 Justyn Clubb Borderline personali ty disorder F60.3 ; Severe episode of recurrent major depressive disorder, without psychotic features F33.2 ; NATE (generalized anxiety disorder) F41.1 ; Marijuana use F12.90 ; History of anorexia nervosa Z86.59 ; Encounter for screening for depression Z13.31 and Nicotine use Z72.0 [facility], [address] [place] [address] 07/17/2024 Radha Hinderliter Borderline personali ty disorder F60.3 [facility], [address] [place] [address] 07/25/2024 Justyn Clubb Borderline personali ty disorder F60.3 ; MDD (major depressive disorder), recurrent episode, moderate F33.1 ; NATE (generalized anxiety disorder) F41.1 ; Marijuana use F12.90 ; Encounter for screening for cardiovascular disorders Z13.6 ; History of anorexia nervosa Z86.59 and Encounter for screening for depression Z13.31 [facility], [facility] [address] [place] [address] 08/01/2024 Radha Hinderliter Generalized anxiety disorder F41.1 [facility], [address] [place] [address] 08/15/2024 Radha Hinderliter Generalized anxiety disorder F41.1 [facility], [address] [place] [address] 08/15/2024 Justyn Clubb [facility], [address] [place] [address] 08/21/2024 Justyn Clubb Borderline personali ty disorder F60.3 ; MDD (major depressive disorder), recurrent episode, moderate F33.1 ; NATE (generalized anxiety disorder) F41.1 ; Marijuana use F12.90 and Psychophysiological insomnia F51.04 [facility], [address] [place] [address] 08/29/2024 [facility], [address] [place] [address] 09/05/2024 Rdaha Juniorkenya [facility] [address] [place] [address] 09/21/2024 Elisaalexia Johnston Borderline personali ty disorder F60.3 ; MDD (major depressive disorder), recurrent episode, moderate F33.1 and NATE (generalized anxiety disorder) F41.1 [facility] [address] [place] [address] 11/08/2024 Elisaalexia Johnston Borderline personali ty disorder F60.3 ; MDD (major depressive disorder), recurrent episode, moderate F33.1 and NATE (generalized anxiety disorder) F41.1 [facility] [address] [place] [address] 05/22/2024 Justyn Clubb [facility] [address] [place] [address] 07/03/2024 Justyn Clubb [facility], [address] [place] [address] 07/19/2024 Justyn Clubb [facility], [address] [place] [address] 07/24/2024 Justyn Clubb [facility], [facility] [address] [place] [address] 07/24/2024 Justyn Clubb [facility] [address] [place] [address] 07/25/2024 Justyn Clubb [facility] [address] [place] [address] 07/25/2024 [facility], [facility] [address] [place] [address] 08/15/2024 [facility], [facility] [address] [place] [address] 08/29/2024 [facility], [facility] [address] [place] [address] 09/03/2024 [facility], [facility] [address] [place] [address] 06/12/2024 [facility], [facility] [address] [place] [address] 08/15/2024 [facility], [facility] [address] [place] [address] 08/15/2024 [facility], [facility] [address] [place] [address] 08/15/2024 [facility], [facility] [address] [place] [address] 08/22/2024 [facility], [facility] [address] [place] [address] 09/06/2024 [facility], [facility] [address] [place] [address] 10/01/2024 Elisa Johnston Psychophysiological insomnia F51.04 [facility], [facility] [address] [place] [address] 10/29/2024 Elisaalexia Johnston MDD (major depressiv e disorder), recurrent episode, moderate F33.1 ; NATE (generalized anxiety disorder) F41.1 and Psychophysiological insomnia F51.04 [facility], [facility] [address] [place] [address] 11/08/2024 Elisa Johnston [facility], [facility] [address] [place] [address] 12/11/2024 Elisa Johnston [facility], [facility] [address] [place] [address] 12/11/2024 Elisaalexia Johnston MDD (major depressiv e disorder), recurrent episode, moderate F33.1 and NATE (generalized anxiety disorder) F41.1 Assessments Encounter Date Diagnosis (ICD Code) Assessment Notes Treatment Notes Treatment Clinical Notes Section Notes 05/22/2024 Borderline personality disorder (ICD-10 - F60.3) 05/22/2024 NATE (generalized anxiety disorder) (ICD-10 - F41.1) 06/05/2024 NATE (generalized anxiety disorder) (ICD-10 - F41.1) Antipsychotic medications, while effective for treating mental health conditions, can cause a range of side effects, from common to serious, requiring careful monitoring and discussion with a healthcare provider. Common Side Effects: Metabolic: Weight gain, increased cholesterol and blood sugar levels, and changes in appetite. Movement Disorders: Drowsiness, sedation, and in some cases, movement disorders like tremors, stiffness, or restlessness. Other: Dry mouth, constipation, blurred vision, and sexual dysfunction. Serious Side Effects: Extrapyramidal Symptoms (EPS): These include acute dystonia (muscle spasms), Parkinsonism (tremors, rigidity), and tardive dyskinesia (involuntary movements). Neuroleptic Malignant Syndrome (NMS): A rare but potentially fatal condition characterized by high fever, muscle rigidity, and altered mental state. Cardiovascular Issues: Prolongation of the QT interval (a heart rhythm problem), and in rare cases, sudden cardiac . Other Serious Side Effects: Increased risk of stroke, blood clots, and diabetes. Important Considerations: Medication-Specif ic Side Effects: Different antipsychotics have different side effect profiles, so it's crucial to discuss the specific medication with your doctor. Monitoring: Regular monitoring for side effects is essential, especially during the initial stages of treatment. Communication: Open communication with your doctor or psychiatrist is vital to address any concerns or side effects promptly. Older Adults: Antipsychotic medications should be used with caution in older adults due to an increased risk of certain side effects, including stroke and . Dementia: Antipsychotics should be used with extreme caution in people with dementia, as they can increase the risk of due to pneumoni 06/12/2024 Generalized anxiety disorder (ICD-10 - F41.1) 06/19/2024 Borderline personality disorder (ICD-10 - F60.3) 06/19/2024 Severe episode of recurrent major depressive disorder, without psychotic features (ICD-10 - F33.2) SPRAVATO is contraindicated in patients with: Aneurysmal vascular disease (including thoracic and abdominal aorta, intracranial and peripheral arterial vessels) or arteriovenous malformation No History of intracerebral hemorrhage No Hypersensitivity to Esketamine, ketamine, or any of the ingredients No UNCONTROLLED HYPERTENSION No Hypertension is not an absolute contraindication 06/19/2024 Generalized anxiety disorder (ICD-10 - F41.1) 07/03/2024 Borderline personality disorder (ICD-10 - F60.3) 07/03/2024 Severe episode of recurrent major depressive disorder, without psychotic features (ICD-10 - F33.2) SPRAVATO is contraindicated in patients with: Aneurysmal vascular disease (including thoracic and abdominal aorta, intracranial and peripheral arterial vessels) or arteriovenous malformation No History of intracerebral hemorrhage No Hypersensitivity to Esketamine, ketamine, or any of the ingredients No UNCONTROLLED HYPERTENSION No Hypertension is not an absolute contraindication 07/17/2024 Borderline personality disorder (ICD-10 - F60.3) 07/25/2024 Borderline personality disorder (ICD-10 - F60.3) 07/25/2024 MDD (major depressiv e disorder), recurrent episode, moderate (ICD-10 - F33.1) Onset date of the current episode of depression is january 2024 have a current episode of depression for the last denied and during this time frame do not have two months in which there are no significant symptoms of depression. ??? Psychotherapy: in psychotherapy, Frequency weekly with therapist levi Do Yes have active suicidal ideation and suicide risk assessment has been documented. Exclusions TMS is not covered in the following circumstances and is considered not reasonable and necessary. 1 Presence of psychotic symptoms in the current episode No 2 There is a presence of conductive, ferromagnetic, or other magnetic-sensitiv e metals implanted in their head, which are non-removable and within 30cm of the TMS magnetic coil. Examples include: a cochlear implants, No b implanted electrodes/stimul ators in the brain No c Aneurysm clips or coil, No d Stents, No e. bullet fragments No f Other metal devices or objects implanted in the head No g Facial Tattoo with metal ink or permanent makeup No 3 Diagnosed with Schizophrenia, Schizophreniform Disorder, or Schizoaffective No 4 Seizure Disorder No Yes will be a good candidate for TMs Therapy. Treatment history was reviewed. 08/01/2024 Generalized anxiety disorder (ICD-10 - F41.1) 08/15/2024 Generalized anxiety disorder (ICD-10 - F41.1) 08/21/2024 Borderline personality disorder (ICD-10 - F60.3) 09/21/2024 Borderline personality disorder (ICD-10 - F60.3) 09/21/2024 MDD (major depressiv e disorder), recurrent episode, moderate (ICD-10 - F33.1) 10/01/2024 Psychophysiological insomnia (ICD-10 - F51.04) 10/29/2024 MDD (major depressiv e disorder), recurrent episode, moderate (ICD-10 - F33.1) 11/08/2024 Borderline personality disorder (ICD-10 - F60.3) 12/11/2024 MDD (major depressiv e disorder), recurrent episode, moderate (ICD-10 - F33.1) 11/08/2024 MDD (major depressiv e disorder), recurrent episode, moderate (ICD-10 - F33.1) 12/11/2024 NATE (generalized anxiety disorder) (ICD-10 - F41.1) 10/29/2024 NATE (generalized anxiety disorder) (ICD-10 - F41.1) 09/21/2024 NATE (generalized anxiety disorder) (ICD-10 - F41.1) 08/21/2024 MDD (major depressiv e disorder), recurrent episode, moderate (ICD-10 - F33.1) 07/25/2024 NATE (generalized anxiety disorder) (ICD-10 - F41.1) 06/19/2024 NATE (generalized anxiety disorder) (ICD-10 - F41.1) Antipsychotic medications, while effective for treating mental health conditions, can cause a range of side effects, from common to serious, requiring careful monitoring and discussion with a healthcare provider. Common Side Effects: Metabolic: Weight gain, increased cholesterol and blood sugar levels, and changes in appetite. Movement Disorders: Drowsiness, sedation, and in some cases, movement disorders like tremors, stiffness, or restlessness. Other: Dry mouth, constipation, blurred vision, and sexual dysfunction. Serious Side Effects: Extrapyramidal Symptoms (EPS): These include acute dystonia (muscle spasms), Parkinsonism (tremors, rigidity), and tardive dyskinesia (involuntary movements). Neuroleptic Malignant Syndrome (NMS): A rare but potentially fatal condition characterized by high fever, muscle rigidity, and altered mental state. Cardiovascular Issues: Prolongation of the QT interval (a heart rhythm problem), and in rare cases, sudden cardiac . Other Serious Side Effects: Increased risk of stroke, blood clots, and diabetes. Important Considerations: Medication-Specif ic Side Effects: Different antipsychotics have different side effect profiles, so it's crucial to discuss the specific medication with your doctor. Monitoring: Regular monitoring for side effects is essential, especially during the initial stages of treatment. Communication: Open communication with your doctor or psychiatrist is vital to address any concerns or side effects promptly. Older Adults: Antipsychotic medications should be used with caution in older adults due to an increased risk of certain side effects, including stroke and . Dementia: Antipsychotics should be used with extreme caution in people with dementia, as they can increase the risk of due to pneumoni 07/03/2024 NATE (generalized anxiety disorder) (ICD-10 - F41.1) Antipsychotic medications, while effective for treating mental health conditions, can cause a range of side effects, from common to serious, requiring careful monitoring and discussion with a healthcare provider. Common Side Effects: Metabolic: Weight gain, increased cholesterol and blood sugar levels, and changes in appetite. Movement Disorders: Drowsiness, sedation, and in some cases, movement disorders like tremors, stiffness, or restlessness. Other: Dry mouth, constipation, blurred vision, and sexual dysfunction. Serious Side Effects: Extrapyramidal Symptoms (EPS): These include acute dystonia (muscle spasms), Parkinsonism (tremors, rigidity), and tardive dyskinesia (involuntary movements). Neuroleptic Malignant Syndrome (NMS): A rare but potentially fatal condition characterized by high fever, muscle rigidity, and altered mental state. Cardiovascular Issues: Prolongation of the QT interval (a heart rhythm problem), and in rare cases, sudden cardiac . Other Serious Side Effects: Increased risk of stroke, blood clots, and diabetes. Important Considerations: Medication-Specif ic Side Effects: Different antipsychotics have different side effect profiles, so it's crucial to discuss the specific medication with your doctor. Monitoring: Regular monitoring for side effects is essential, especially during the initial stages of treatment. Communication: Open communication with your doctor or psychiatrist is vital to address any concerns or side effects promptly. Older Adults: Antipsychotic medications should be used with caution in older adults due to an increased risk of certain side effects, including stroke and . Dementia: Antipsychotics should be used with extreme caution in people with dementia, as they can increase the risk of due to pneumoni 06/05/2024 Marijuana use (ICD-1 0 - F12.90) 05/22/2024 Marijuana use (ICD-1 0 - F12.90) 06/05/2024 Borderline personality disorder (ICD-10 - F60.3) 05/22/2024 Encounter for screening for depression (ICD-10 - Z13.31) 06/05/2024 Encounter for screening for depression (ICD-10 - Z13.31) 06/19/2024 Marijuana use (ICD-1 0 - F12.90) 07/03/2024 Marijuana use (ICD-1 0 - F12.90) 07/25/2024 Marijuana use (ICD-1 0 - F12.90) 08/21/2024 NATE (generalized anxiety disorder) (ICD-10 - F41.1) 10/29/2024 Psychophysiological insomnia (ICD-10 - F51.04) 11/08/2024 NATE (generalized anxiety disorder) (ICD-10 - F41.1) 08/21/2024 Marijuana use (ICD-1 0 - F12.90) 08/21/2024 Psychophysiological insomnia (ICD-10 - F51.04) 07/03/2024 History of anorexia nervosa (ICD-10 - Z86.59) 07/25/2024 Encounter for screening for cardiovascular disorders (ICD-10 - Z13.6) 06/19/2024 History of anorexia nervosa (ICD-10 - Z86.59) 06/05/2024 Encounter for screening for cardiovascular disorders (ICD-10 - Z13.6) 05/22/2024 Encounter for screening for cardiovascular disorders (ICD-10 - Z13.6) 07/03/2024 Encounter for screening for depression (ICD-10 - Z13.31) 06/19/2024 Encounter for screening for depression (ICD-10 - Z13.31) 07/25/2024 History of anorexia nervosa (ICD-10 - Z86.59) 07/25/2024 Encounter for screening for depression (ICD-10 - Z13.31) 05/22/2024 Nicotine use (ICD-10 - Z72.0) 07/03/2024 Nicotine use (ICD-10 - Z72.0) 05/22/2024 Other Learning About Depression Screening material was printed Borderline Personality Disorder (BPD) Borderline personality disorder was first noticed years ago. Symptoms include experiencing intense anger or irritability in personal relationships, feelings of emptiness, feelings of worthlessness, feeling suicidal, transient paranoid thinking due to stress. Behavioral symptoms include impulsive behaviors, inflexible or rigid patterns of interpersonal interactions. Adverse consequences include conflict with parents, difficulty establishing cooperative relationships at work, difficulty establishing relationships, difficulty fulfilling expectations . Treatments have included close and frequent monitoring. Plan: - resources provided on DBT and individual therapy in surrounding towns and at [facility] walk-in clinic. - discussed the book 'i hate you, don't leave me'. - Explore patient's willingness to re-engage in evidence-based treatments for BPD, such as DBT - initiate quetiapine ER 50 mg HS. Anxiety Disorder Assessment: Patient reports severe anxiety symptoms, including heart palpitations, nausea, and vomiting. Previous trials of multiple psychotropic medications have been unsuccessful in managing symptoms. Patient has been using Xanax (alprazolam) obtained from her mother for acute anxiety episodes, which is concerning due to the potential for dependence and its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
--- NOTE | 2024-12-11 11:30 | ECG_ITS ---
Test Date: 2024-12-11 11:38:48 Measurements Intervals [place]osia Rate: 71 P: 8 DE: 128 QRS: 74 QRSD: 94 T: 44 QT: 377 QTc: 411 Interpretive Statements SINUS RHYTHM WITH SINUS ARRHYTHMIA Compared to ECG 11/08/2023 21:04:25 Sinus tachycardia no longer present T-wave abnormality no longer present Electronically Signed On 12-11-2024 21:25:31 [employer]ER by Lizy Flynn M.D.
[2024-12-11] MEDS: METOCLOPRAMIDE HCL INJ 10 MG/2 ML VIAL IV PUSH (11:51)
[2024-12-11] MEDS: FAMOTIDINE 20 MG/2 ML VIAL IV PUSH (11:51)
[2024-12-11 11:58] LABS: Hematocrit 40.4 % (37.0-47.0); Hemoglobin 13.9 g/dL (12.0-15.0); Immature Granulocyte Percent A 0.4 % (0-0.5); Lymphocytes Absolute Auto 1.06 K/mm3 (0.9-3.2); Mean Corpuscular HGB Conc 34.4 g/dl (32-36); Mean Corpuscular Hemoglobin 31.2 pg (26-34); Mean Corpuscular Volume 90.8 fl (80-100); Nucleated Red Blood Cells Absolute Auto 0.000 K/mm3 (0.0-0.012); Nucleated Red Blood Cells Perc 0.0 % (0.0-0.2); Platelet Count Result 320 k/mm3 (150-375); Red Blood Count 4.45 M/mm3 (4.2-5.4); White Blood Count 9.2 K/mm3 (4.5-10.0)
--- NOTE | 2024-12-11 12:07 | PC.NURSE ---
pt demanding to leave, asked for iv to be removed. IV removed prior to leaving
[2024-12-11 12:16] LABS: Alanine Aminotransferase 20 U/L (6-35); Albumin Level 4.6 g/dL (3.5-5.1); Alkaline Phosphatase 53 U/L (38-126); Anion Gap 7 mmol/L (4-12); Aspartate Amino Transferase 29 U/L (14-36); Bilirubin,Total 0.5 mg/dL (0.2-1.3); Blood Urea Nitrogen 13 mg/dL (7-17); Calcium 9.2 mg/dL (8.4-10.2); Carbon Dioxide 25 mmol/L (22-30); Chloride 104 mmol/L (98-107); Estimated CRCL calculation 115 ml/min; Estimated Glomerular Filt Rate > 60; Glucose 98 mg/dL (65-110); Lipase 85 U/L (23-300); Potassium 4.0 mmol/L (3.4-5.0); Sodium 136 mmol/L (137-145); Total Protein 8.0 g/dL (6.3-8.2)
--- NOTE | 2024-12-11 12:16 | ED.NAVMDI ---
HPI - Nausea/Vomiting/Diarrhea General Chief complaint: Nausea/Vomiting/Diarrhea Stated complaint: nauseated Time Seen by Provider: 12/11/24 11:22 History of Present Illness HPI Narrative: Patient presenting here with nausea, vomiting, diarrhea that started today, she has had diagnosis of gastroparesis and has tried home Zofran and Reglan and Protonix. Feels like she cannot keep anything down and threw up bile. Feels like there is pain coming upper chest and feels like her heart is fluttering. 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, neurologist Related Data Home Medications ?Medication ?Instructions ?Recorded ?Confirmed ?Last Taken ?Type albuterol sulfate 90 mcg/actuation 1 puff inhalation Q4H PRN 03/03/23 10/03/24 Unknown History aerosol inhaler Shortness Of Breath dapsone 7.5 % topical gel with pump 1 applic topical DAILY 11/07/23 10/03/24 01/09/24 History spironolactone 100 mg tablet 100 mg PO DAILY 11/07/23 10/03/24 01/09/24 History hydroxyzine HCl 10 mg tablet 10 mg PO TID PRN 06/21/24 10/03/24 Unknown History quetiapine 150 mg tablet,extended 150 mg PO QHS 06/21/24 10/03/24 Unknown History release 24 hr (Seroquel XR) buspirone 7.5 mg tablet 7.5 mg PO BID 10/03/24 10/03/24 Unknown History doxepin 3 mg tablet (Silenor) 3 mg PO QHS 10/03/24 10/03/24 Unknown History norgestimate 0.25 mg-ethinyl 1 tablet PO DAILY 10/03/24 10/03/24 Unknown History estradiol 0.035 mg tablet (Estarylla) upadacitinib 15 mg tablet,extended 15 mg PO DAILY 10/03/24 10/03/24 Unknown History release 24 hr (Rinvoq) vortioxetine 20 mg tablet 20 mg PO DAILY 10/03/24 10/03/24 Unknown History (Trintellix) Allergies Allergy/AdvReac Type Severity Reaction Status Date / Time lamotrigine (From Lamictal) Allergy Unknown Rash Verified 12/11/24 11:48 Review of Systems Review of Systems: All systems reviewed & are unremarkable except as noted in HPI and below PMFSH Past Medical History Medical History Chronic pain Personality disorder Eating disorder Depression Migraine Anxiety Asthma Seasonal allergies Family History Family History Father Hypertension Mother Diabetes mellitus Depression Asthma Grandparent Diabetes mellitus Hypertension Heart problem Sibling Depression Sibling Depression Grandparent Heart disease Hypertension Grandparent Heart problem Hypertension Grandparent Hypertension Cancer Social History Social History Smoking status: Never smoker Tobacco type: e-cigarettes/vaping Second hand tobacco smoke exposure: No Alcohol intake: current Alcohol use details: Rarely Substance use: current Substance use type: marijuana Other substance usage details: vapes, edibles from dispensary only Last use: 01/02/24 Do You Feel Safe in your Home?: Yes Lack of Transportation: No Lack of Food: Never True Current Housing: I Have Housing Concerned About Future Housing: No Difficulty Paying Gas/Electric Bills: No Difficulty Paying for Meds: No Currently Unemployed: YES Education: High School Diploma/GED Difficulty w/ Childcare or Family Care: No Living arrangements: with family Occupation/Education: occupation 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 EYES: EOMI, conjunctiva normal ENT: Hearing grossly intact LUNGS: Nonlabored breathing. HEART: [Regular rate and rhythm] ABD: [Soft], [nontender to palpation] EXT: Normal range of motion SKIN: [No rashes or lesions.] NEURO: [Alert and oriented x 3. No gross focal sensory or strength deficits.] PSYCH: Normal affect Course Vital Signs Vital signs: Vital Signs Temperature 98 F 12/11/24 09:41 Pulse Rate 84 12/11/24 09:41 Respiratory Rate 18 12/11/24 09:41 Blood Pressure 137/77 12/11/24 09:41 Pulse Oximetry 100 12/11/24 09:41 Oxygen Delivery Room Air 12/11/24 09:41 Temperature 98 F 12/11/24 09:41 Pulse Rate 84 12/11/24 09:41 Respiratory Rate 18 12/11/24 09:41 Blood Pressure 137/77 12/11/24 09:41 Pulse Oximetry 100 12/11/24 09:41 Oxygen Delivery Room Air 12/11/24 09:41 MDM - Nausea/Vomiting/Diarrhea MDM Narrative Medical decision making narrative: Patient presenting here with nausea, vomiting, diarrhea that started today, she has had diagnosis of gastroparesis and has tried home Zofran and Reglan and Protonix. Feels like she cannot keep anything down and threw up bile. On exam, she is in no distress, vital signs are normal, abdomen soft and has not thrown up in the emergency room, discussed given her diagnosis is gastroparesis, that we can try IV fluids, Reglan, Benadryl, famotidine, and then an EKG to assess her heartbeat, and re-evaluate afterwards. I was informed afterwards that the patient has eloped. Lab Data 12/11/24 11:46 12/11/24 11:46 Labs: Lab Results 12/11/24 Range/Units 11:46 WBC 9.2 (4.5-10.0) K/mm3 RBC 4.45 (4.2-5.4) M/mm3 Hgb 13.9 (12.0-15.0) g/dL Hct 40.4 (37.0-47.0) % MCV 90.8 (80-100) fl MCH 31.2 (26-34) pg MCHC 34.4 (32-36) g/dl RDW 12.4 (11.5-14.5) % Plt Count 320 (150-375) k/mm3 MPV 9.3 (7.4-10.4) fl Immature Gran % (Auto) 0.4 (0-0.5) % Neut % (Auto) 84.5 H (45.5-73.1) % Lymph % (Auto) 11.5 L (18.3-44.2) % Dukes % (Auto) 3.1 (2.6-8.5) % Eos % (Auto) 0.1 (0-4.4) % Baso % (Auto) 0.4 (0.2-1.2) % Lymph # (Auto) 1.06 (0.9-3.2) K/mm3 Dukes # (Auto) 0.3 (0.1-0.6) K/mm3 Eos # (Auto) 0.0 (0-0.3) K/mm3 Baso # (Auto) 0.0 (0.0-0.1) K/mm3 Abs Immat Gran (auto) 0.04 H (0.00-0.031) K/mm3 Absolute Neuts (auto) 7.8 H (1.3-6.7) K/mm3 Absolute Nucleated RBC 0.000 (0.0-0.012) K/mm3 Nucleated RBC % 0.0 (0.0-0.2) % Sodium 136 L (137-145) mmol/L Potassium 4.0 (3.4-5.0) mmol/L Chloride 104 (98-107) mmol/L Carbon Dioxide 25 (22-30) mmol/L Anion Gap 7 (4-12) mmol/L BUN 13 (7-17) mg/dL Creatinine 0.64 L (0.7-1.0) mg/dL Estim Creat Clear Calc 115 ml/min Estimated GFR > 60 (59 - ) Glucose 98 (65-110) mg/dL Calcium 9.2 (8.4-10.2) mg/dL Total Bilirubin 0.5 (0.2-1.3) mg/dL AST 29 (14-36) U/L ALT 20 (6-35) U/L Alkaline Phosphatase 53 (38-126) U/L Total Protein 8.0 (6.3-8.2) g/dL Albumin 4.6 (3.5-5.1) g/dL Lipase 85 (23-300) U/L Discharge Plan Discharge Clinical Impression: Nausea, vomiting, and diarrhea Patient Disposition: Elopement After Seen by Prov Patient Language: Amharic Prescriptions: No Action albuterol sulfate 90 mcg/actuation HFA aerosol inhaler 1 puff inhalation Q4H PRN (Reason: Shortness Of Breath) norgestimate-ethinyl estradiol [Estarylla] 0.25-0.035 mg tablet 1 tablet PO DAILY buspirone 7.5 mg tablet 7.5 mg PO BID doxepin [Silenor] 3 mg tablet 3 mg PO QHS Trintellix 20 mg tablet 20 mg PO DAILY Rinvoq 15 mg tablet extended release 24 hr 15 mg PO DAILY spironolactone 100 mg tablet 100 mg PO DAILY dapsone 7.5 % gel with pump 1 applic topical DAILY Rx Instructions: rub in gently and completely quetiapine [Seroquel XR] 150 mg tablet extended release 24 hr 150 mg PO QHS hydroxyzine HCl 10 mg tablet 10 mg PO TID PRN metoclopramide HCl 5 mg tablet 10 mg PO .ac Qty: 180 3RF ondansetron 4 mg tablet,disintegrating 4 mg PO Q8H PRN (Reason: nausea and vomiting) Qty: 10 0RF pantoprazole 40 mg tablet,delayed release (DR/EC) See Rx Instructions .ROUTE .COMPLEX Qty: 180 1RF Dose Instruction: TAKE 1 TABLET BY MOUTH TWICE DAILY Rx Instructions: TAKE 1 TABLET BY MOUTH TWICE DAILY Follow-up/Referrals: Omkar,MD Juan [Primary Care Provider]
--- NOTE | 2024-12-11 12:50 | PC.NURSE ---
After administering IV Pepcid and Reglan, pt reports that she feels worse. pt states You're giving medications that I can just get over the counter and they are not helping. The doctor was in the room for 3 minutes. All I want to do is feel better and you are not helping me. Asked pt if she would like me to administer the Benadryl and IV fluids. pt declined. explained to pt that this RN will talk to the provider about her concerns. solutions engineer made aware of situation. Provider in room with critical patient. When going back in room, pt had eloped. IV catheter intact in trash can. Was made aware that she had asked another RN to remove the IV so she could leave. pt eloped before this RN could obtain a set of vital signs.
--- OUTSIDE RECORDS SUMMARY | 2024-12-11 14:07 | XMS_ITS ---
Author Organization Unknown ENCOUNTERS Encounter Performer Location Date Diagnosis Diagnosis Status Emergency [facility] [address] [place] [address] [id number] EASP Pre Admit [facility] [address] [place] [address] [id number] Outpatient Michell Craft [facility] [address] [place] [address] [id number] [place] Outpatient Juan Espitia [facility] [address] [place] [address] [id number] [place] Outpatient Juan Espitia [facility] [address] [place] [address] [id number] [place] Pre Admit Juan Espitia [facility] [address] [place] [address] [id number] Outpatient [facility] [address] [place] [id number] [place] [address] [facility] [address] [place] [address] [id number] [place] Outpatient [facility] [address] [place] [address] [id number] [place] Pre Admit [facility] [address] [place] [address] [id number] Emergency [facility] [address] [place] [address] [id number] [place] [facility] [address] [place] [address] [id number] [place] *Note: Encounters from your own facility or health system may be excluded. Allergies, Adverse Reactions, Alerts Allergen Type Severity Identification Date lamotrigine drug allergy 3 [id number] Penicillins drug allergy 4 [id number] Medications Name Date Quantity Days Supplied GPI Number
== END 2024-12-11 12:44 | disposition left against medical advice (07) ==
PROVIDERS: Emergency Provider Emergency Medicine; PCP Internal Medicine
DX: R11.2 Nausea with vomiting, unspecified (principal); R19.7 Diarrhea, unspecified; J45.909 Unspecified asthma, uncomplicated; Z79.899 Other long term (current) drug therapy
CPT/HCPCS: 36415; 80053; 83690; 85025; 93005; 96361; 96374; 96375; 99284; J1200; J2765; J7120

== ENCOUNTER 2025-01-10 11:14 | Outpatient (CLI) | payer OTHER, SELFPAY ==
--- NOTE | ~2025-01-10 | US_ITS ---
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 Comparison: None Technique: Lynn-scale and color Doppler images were obtained. Findings: Uterus: Uterus anteverted 7.7 x 3.6 x 2.7 cm. . Endometrium 3 mm. Right Ovary:Right ovary 2.1 x 1.8 x 1.8 cm, no adnexal mass, normal flow. Left Ovary: Left ovary 2.7 x 1.8 x 1.6 cm, no adnexal mass, normal flow. Free Fluid: None Impression: 1. No etiology to explain the patient's symptoms Reviewed, dictated and finalized at location P. S APPRENTICE Impression: 1. No etiology to explain the patient's symptoms
== END 2025-01-10 11:15 | disposition home or self-care (01) ==
PROVIDERS: PCP Student in an Organized Health Care Education/Training Program; Visit Provider Student in an Organized Health Care Education/Training Program
DX: N92.1 Excessive and frequent menstruation with irregular cycle (principal)
CPT/HCPCS: 76830; 76856